=== PATIENT | female | born 1985 | race Caucasian/White ===

== ENCOUNTER 2024-09-08 08:23 | Outpatient (AMB) | payer MEDICAID, SELFPAY ==
--- NOTE | 2024-09-08 08:43 | OBCLNT_ITS ---
Vital Signs 09/08/24 08:57 Height 1.7 m Height Method Stated Weight 83.461 kg Weight Measurement Method Standing Scale BMI 28.8 BP 113/74 Blood Pressure Source Automatic Cuff Blood Pressure Location Left Upper Arm Position Sitting Respiration 18 Pulse 85 Pulse Source Monitor Temp 97.5 F Temp Source Temporal Artery Scan Pulse Oximetry (%) 98 Oxygen Delivery Method Room Air Allergies/Home Meds Allergies & Medications Allergies No Known Allergies Allergy (Verified 09/08/24 08:47) Medication Reconciliation PNV 153-FA 400 mcg-om3 35 mg-dha 25 mg-epa 5 mg-fish oil chew tablet ( Gummies) 1 tab PO QDAY 90 days #90 tabs 09/08/24 [Rx] Intake Visit Data Collection New Patient or Established: Established Patient (seen at [facility] within 3 years) Reason for Visit:: OBI Seen by Clinical Staff ONLY (RN/MA): No Portfolio Strategist Required: No Do You Feel Safe at Home: Yes Authorities Contacted: N/A PCP or OBGYN visit in last 3 months: No Hx Now: Yes Are you currently on any form of Control: No Last menstrual period: 05/27/24 Pain Present Currently: No Pain Scale Used: Jacob-Iyer/Numerical Smoking Status Smoking Status: Never smoker Questionnaires Covid-19 Vaccine Questionnaire Has patient been vacinated for Covid-19 Have you been vacinated for Covid-19: No PHQ-9 PHQ-2 Over the last 2 weeks, how often have you been bothered by any of the following problems? 1. Little interest or pleasure in doing things: not at all 2. Feeling down, depressed, or hopeless: not at all Total score: 0 PHQ-9 3. Trouble falling or staying asleep, or sleeping too much: Several days 4. Feeling tired or having little energy: Several days 5. Poor appetite or overeating: Not at all 6. Feeling bad about yourself - or that you are a failure or have let yourself or your family down: Not at all 7. Trouble concentrating on things, such as reading the newspaper or watching television: Not at all 8. Moving or speaking so slowly that other people could have noticed? - Or the opposite - being so fidgety or restless that you have been moving around a lot more than usual: not at all 9. Thoughts that you would be better off or of hurting yourself in some way: Not at all Total score: 2.0 If you checked off any problems, how difficult have these problems made it for you to do your work, take care of things at home, or get along with other people?: not difficult at all Source: Developed by Drs. Kevin Holliday, Tami Pang, Sathya Lerner and colleagues, with an educational robby from [employer]. Depression screen completed yes Social History Living Situation History Marital Status: Single Lives With: Children Housing: House Tobacco History Smoking Status: Never smoker Alcohol History Alcohol Intake: Never Domestic Abuse History Do You Feel Safe at Home: Yes Past Medical History Past Medical History Have you ever been diagnosed with any of the following: Cardiology Problems Congestive Heart Failure: No Respiratory Problems Chronic Obstructive Pulmonary Disease (COPD): No Stomache/Intestinal Problems Hepatitis: No Colorectal Cancer: No Genital/Urinary Problems Renal Disease: No Reproductive Problems Breast Cancer: No Previous Pregnancies: Yes Musculoskeletal Problems Bone Cancer: No Endocrine Problems Diabetes Mellitus Type 1: No Diabetes Mellitus Type 2: No Other Problems Hospitalization: No Down Syndrome: No Developmental Delay: No Shingles: No Falls: No Blood Transfusions: No Blood Transfusion Reaction: No Anesthesia Reactions: No Organ Transplant: No Chemotherapy: No Radiation Therapy: No Hyperbaric Therapy: No MRSA: No VRSA: No Vancomycin-Resistant Enterococci: No Human Immunodeficiency Virus (HIV): No Chicken Pox: No Measles: No Mumps: No Rubella (Portuguese Measles): No Pertussis: No Clostridium Difficile: No Cancer: No Cervical Cancer: No Lung Cancer: No Ovarian Cancer: No Surgical History Hysterectomy: No History of Present Illness HPI Narrative History of Present Illness Lucia Babcock is a 38-year-old who presents for her initial visit at 14 weeks and 6 days gestation based on her last menstrual period of May 26, 2024. The patient reports experiencing headaches and nausea, which she attributes to the vitamins she has been taking. The patient describes that when she takes the prescribed vitamins, she experiences severe headaches that do not improve with sleep and worsen over time. Additionally, she reports feeling sick to her stomach and being unable to engage in normal activities, often confined to the couch due to these symptoms. However, when she stops taking the vitamins, her symptoms improve significantly. She states, I'm perfectly fine. I'm not even tired. I'm not weak. I don't feel sick. I don't get headaches. The patient mentions that her menstrual cycles were unusual in April and May, lasting only about 2 days instead of her typical 5-day duration. She denies any other current health issues or concerns related to her . Regarding her obstetric history, the patient has had two full-term vaginal deliveries, one second-trimester loss at 15 weeks in July 2021, and two miscarriages. 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 No cramping/ bleeding No nausea/ vomiting OB Ultrasound OB Ultrasound Gestational sac assessment: Presence, location, size, shape: heart rate 142 bpm, normal. Uterus WNL, CRL consistent with 13 weeks 6 days gestation. OB Initial Visit OB Flowsheet OB Flowsheet Initial Weight: Not Recorded Date -?-?-?-?-?-?-?-?-?-?-?-?- EGA Weight Edema CTX Effacement BP Fundal ht Pres Dilation Effacement Station Visit Note Alb Glu FHR Mov 09/08/24 -?-?-?-?-?-?-?-?-?-?-?-?- 13w 1d 83.461 kg 113/74 OBI: Lucia Babcock is a 38-year-old who presents for her initial visit at 14 weeks and 6 days gestation based on her last menstrual period of May 26, 2024. Regarding her obstetric history, the pat ient has had two full-term vaginal deliveries, one second-trimester loss at 15 weeks in July 2021, and two miscarriages. 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 - Order initial labs including genetic testing for aneuploidy screening - Refer for anatomy survey ultrasound at 20 weeks gestation at [facility] - Continue care with regular fo llow-up visits - Discontinue current vitamin p rescription - Recommend trial of [id number]-jjdaemz pr enatal gummy vitamins - Educate patient that temporary discont inuation of vitamins is acceptable 145 Menstrual History Menstrual reliability: definite Flow: normal Menstrual regularity: regular Monthly: Yes Age at menarche: 10 On control pills at conception: No Date of positive home test: 03/10/25 OB History : 5 Para: 2 Hx Total # of Abortions (Spontaneous & Elective): 2 # of Living Children: 2 Delivery History 1st : Child's name: Jodi date: 05/21/16 sex: female Delivery type: vaginal weight (lbs): 6000 g Delivery complications: no History of depression before or after : No 2nd : Child's name: Ernie date: 10/09/19 sex: male Delivery type: vaginal weight (lbs): 8000 g Delivery complications: no History of depression before or after : No Infection History & Risk Evaluation History of STDs: none HIV risk evaluation: low risk Hepatitis B risk evaluation: low risk Patient or partner has history of Genital Herpes: No Varicella/chicken pox status: immunized Genetic Screening & History Genetic Screening/Teratology Counseling - Includes patient, baby's father, or anyone in either family with: 1. Patient's age 35 years or older as of estimated date of delivery: Yes 2. Thalassemia (Belarusian, Syriac, Mediterranean, or Background); MCV less than 80: No 3. Neural Tube Defect (Meningomyelocele, Spina Bifida, or Anencephaly): No 4. Congenital Heart Defect: No 5. Down Syndrome: No 6. Ciro-Sachs (Ashkenazi Methodist, Cajun, Namibian [place]): No 7. Gabo Disease (Ashkenazi Methodist): No 8. Familial Dysautonomia (Ashkenazi Methodist): No 9. Sickle Cell Disease or Trait (): No 10. Hemophilia or other blood disorders: No 11. Muscular Dystrophy: No 12. Cystic Fibrosis: No 13. [place]'s Chorea: No 14. Mental Retardation/Autism: No 15. Other inherited genetic or chromosomal disorder: No 16. Maternal Metabolic Disorder (EG,TYPE 1 Diabetes, PKU): No 17. Patient or baby's father had a child with defects not listed above: No 18. Recurrent loss or a stillbirth: Yes 19. Medications (including supplements, vitamins, herbs or otc drugs)/illicit/recreational drugs/alcohol since last menstrual period: No 20. Any other: No Infection History 1. Live with someone with TB or exposed to TB: No 2. Rash or viral illness since last menstrual period: No 3. Hepatitis B,C: No Other (see comments) Source: [employer] Assessment & Plan Diagnosis / Problem List (1) with history of : Status: Acute (2) Advanced maternal age (AMA) in : Status: Acute Plan Problem-Based Assessment and Plan Lucia Babcock, 38-year-old female at 14 weeks 6 days gestation presenting for initial visit with complaints of headaches and nausea. Intrauterine Assessment: Patient is a 38-year-old at 14 weeks 6 days gestation based on last menstrual period of May 27, 2024, with an estimated due date of March 03, 2025. Ultrasound performed today confirms viable intrauterine with heart rate of 142 bpm, which is within normal range. anatomy visualized appears normal for gestational age. Dating by ultrasound (13 weeks 6 days) is consistent with dating by last menstrual period. Plan: - Order initial labs including genetic testing for aneuploidy screening - Refer for anatomy survey ultrasound at 20 weeks gestation at [facility] - Continue care with regular follow-up visits vitamin intolerance Assessment: Patient reports headaches and nausea associated with current vitamin prescription. Symptoms improve when patient discontinues the vitamin. Plan: - Discontinue current vitamin prescription - Recommend trial of fulc-xiw-bqwviab gummy vitamins - Educate patient that temporary discontinuation of vitamins is acceptable Pt Education Educated the patient on the importance of care, including taking vitamins with folic acid, iron, and calcium. Emphasized avoiding alcohol, smoking, and certain medications. Discussed common symptoms like nausea and fatigue, advising small, frequent meals and adequate hydration. Explained the need for regular check-ups and recommended safe physical activities. Instructed on signs of complications, such as severe cramping or bleeding, and when to seek immediate medical attention. Highlighted the importance of a balanced diet and avoiding high-risk foods. Encouraged open communication about any concerns or questions. Encouraged keeping up with all appointments and tests. Counseled on future schedule of labs and ultrasound, MFM appt if indicated Office Procedures OB Clinic LOC & Office Proc's Nursing/Assessment Patient Status: Established Patient OB Clinic Nursing Assessment: BP Monitoring, Medication Reconciliation, Update PMH in EMR and Vital Signs OB Clinic Coordination of Care: Complex Care and Chronic Disease 1-5, Consent,records obtained, informed consent, Education Simp Pt/Fam, Lab and Imaging orders and Staff clarify orders Established Patient Charge Established Patient Point Assignment: 115 Established Patient Point Charge: EP Level 3 (80-115) Antepartum Initial or Follow-up Antepartum Initial Visit: No Bedside Ultrasounds US Transabdominal <14 weeks at bedside: Yes
[2024-09-08 08:57] VITALS: BP 113/74; PULSE 85; RESP 18; TEMP 36.4; O2SAT 98; BMI 28.8
== END 2024-09-08 09:43 | disposition home or self-care (01) ==
LOC: HODSOBC 08:23
PROVIDERS: PCP Family Medicine; Referring Provider Family Medicine; Supervising Provider Obstetrics & Gynecology; Visit Provider Obstetrics & Gynecology
DX: O09.521 Supervision of elderly multigravida, first trimester (principal); Z3A.13 13 weeks gestation of pregnancy; O09.291 Supervision of pregnancy with other poor reproductive or obstetric history, first trimester; O26.21 Pregnancy care for patient with recurrent pregnancy loss, first trimester; O9A.211 Injury, poisoning and certain other consequences of external causes complicating pregnancy, first trimester; R51.9 Headache, unspecified; R11.0 Nausea; T45.2X5A Adverse effect of vitamins, initial encounter
CPT/HCPCS: 76801; 99213; G0463

== ENCOUNTER 2024-10-06 09:05 | Outpatient (AMB) | payer MEDICAID, SELFPAY ==
--- NOTE | 2024-10-06 09:28 | OBCLNT_ITS ---
Vital Signs 10/06/24 09:29 Height 1.7 m Height Method Stated Weight 82.554 kg Weight Measurement Method Standing Scale BMI 28.5 BP 109/71 Blood Pressure Source Automatic Cuff Blood Pressure Location Left Upper Arm Position Sitting Respiration 18 Pulse 85 Pulse Source Monitor Temp 97.2 F Temp Source Oral Pulse Oximetry (%) 98 Oxygen Delivery Method Room Air Allergies/Home Meds Allergies & Medications Allergies No Known Allergies Allergy (Verified 10/06/24 09:29) Medication Reconciliation vitamin with calcium no.72-iron 27 mg-folic acid 1 mg tablet ( Vitamins Plus Low Iron) 1 tab PO QDAY 90 days #90 tabs 09/23/24 [Rx Confirmed 10/06/24] docusate sodium 100 mg capsule (Stool Softener) 100 mg PO QDAY 30 days #30 caps 10/06/24 [Rx] ferrous sulfate 325 mg (65 mg iron) tablet 325 mg PO BID 90 days #180 tabs 10/06/24 [Rx] Intake Visit Data Collection New Patient or Established: Established Patient (seen at [facility] within 3 years) Reason for Visit:: OBC CHECK NO CONCERNS Seen by Clinical Staff ONLY (RN/MA): No Circus Roustabout Required: No Do You Feel Safe at Home: Yes Authorities Contacted: N/A PCP or OBGYN visit in last 3 months: Yes Date of Last PCP or OBGYN visit: 09/08/24 Hx Now: Yes Are you currently on any form of Control: No Pain Present Currently: No Pain scale:: 0 Smoking Status Smoking Status: Never smoker Questionnaires Covid-19 Vaccine Questionnaire Has patient been vacinated for Covid-19 Have you been vacinated for Covid-19: Yes PHQ-9 PHQ-2 Over the last 2 weeks, how often have you been bothered by any of the following problems? 1. Little interest or pleasure in doing things: not at all 2. Feeling down, depressed, or hopeless: not at all Total score: 0 PHQ-9 3. Trouble falling or staying asleep, or sleeping too much: Not at all 4. Feeling tired or having little energy: Not at all 5. Poor appetite or overeating: Not at all 6. Feeling bad about yourself - or that you are a failure or have let yourself or your family down: Not at all 7. Trouble concentrating on things, such as reading the newspaper or watching television: Not at all 8. Moving or speaking so slowly that other people could have noticed? - Or the opposite - being so fidgety or restless that you have been moving around a lot more than usual: not at all 9. Thoughts that you would be better off or of hurting yourself in some way: Not at all Total score: 0 If you checked off any problems, how difficult have these problems made it for you to do your work, take care of things at home, or get along with other people?: not difficult at all Source: Developed by Drs. Kevin Holliday, Tami Pang, Sathya Lerner and colleagues, with an educational robby from [employer]. 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 - Patient was previously seen on September 08, 2024, and given lab orders for labs and genetic testing. - She reports difficulty digesting vitamins. - Mentions intermittently holding the vitamin due to digestive issues. - No other symptoms or complaints reported. No contractions/ LOF/VB, reports good FM No SALINAS/VC/RUQ/Epig pain Care OB Visit Log OB Flowsheet Initial Weight: Not Recorded Date -?-?-?-?-?-?-?-?-?-?-?-?- EGA Weight BP Alb Glu CTX Pres Fundal ht FHR Mov Dilation Station Effacement Hx Notes Visit Note 09/08/24 -?-?-?-?-?-?-?-?-?-?-?-?- 13w 1d 83.461 kg 113/74 145 OBI: Lucia Babcock is a 38-year-old who presents for her initial visit at 14 weeks and 6 days gestation based on her last menstrual period of May 26, 2024. Regarding her obstetric history, the pat ient has had two full-term vaginal deliveries, one second-trimester loss at 15 weeks in July 2021, and two miscarriages. 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 - Order initial labs including genetic testing for aneuploidy screening - Refer for anatomy survey ultrasound at 20 weeks gestation at [facility] - Continue care with regular fo llow-up visits - Discontinue current vitamin p rescription - Recommend trial of mgbc-vgc-grdjyee pr enatal gummy vitamins - Educate patient that temporary discont inuation of vitamins is acceptable 10/06/24 -?-?-?-?-?-?-?-?-?-?-?-?- 17w 1d 82.554 kg 109/71 Lucia Babcock, at 17w1d, presents for routine care. She reports difficulty tolerating vitamins due to digestive issues and has intermittently held them. No other complaints. Denies CTX/LOF/VB, reports good FM. Labs show mild anemia (Hgb 10.3), 1+ ketonuria, and reactive RPR with 1:1 titer (TPA negative). All other labs, including genetic screen, were normal. Male fetus confirmed. Plan: Switch to chewable or gummy vit pedro with iron Encourage increased hydration and regula r meals to reduce ketonuria Monitor RPR titer; no treatment needed i f TPA remains negative Continue routine care Follow up in 4 weeks ELOINA Calculator Estimated Delivery Date Method Current WG Current Estimate 03/15/25 Ultrasound #1 18w 6d Other Estimates 03/03/25 LMP (Certain) 20w 4d Exam General General Appearance: alert, in no apparent distress and healthy appearing Head Head exam: atraumatic Neck Neck exam: Present normal inspection and trachea midline Chest Chest inspection: Present normal inspection and symmetric chest wall rise External exam: Present normal external exam; Absent tenderness Neuro Neurological exam: Present oriented X3 Psych Psychiatric exam: Present normal affect and normal mood Office Procedures OB Clinic LOC & Office Proc's Nursing/Assessment Patient Status: Established Patient OB Clinic Nursing Assessment: Medication Reconciliation, Update PMH in EMR and Vital Signs OB Clinic Coordination of Care: Consent,records obtained, informed consent, Education Simp Pt/Fam and Staff clarify orders Special Needs: Heart tones Established Patient Charge Established Patient Point Assignment: 90 Established Patient Point Charge: EP Level 3 (80-115) Assessment & Plan Diagnosis / Problem List (1) with history of : Status: Acute (2) Anemia affecting : Status: Acute Plan Problem List - , 17 weeks 1 day - Anemia - Ketonuria - Reactive RPR Assessment - 5 para 2 at 17 weeks and 1 day gestation - RPR reactive with titer 1:1, TPA negative - Mild anemia (Hgb 10.3, Hct 31.2) - Ketonuria (1+ ketones on urinalysis) - Male fetus confirmed by genetic testing - Negative for aneuploidy and common chromosome abnormalities - Negative for SMA, cystic fibrosis, and Fragile X carrier status - Hepatitis B negative, Hepatitis C negative - Rubella immune - Blood type O positive, antibody screen negative - HIV negative, gonorrhea and chlamydia negative Educated the patient on labor signs, including regular contractions, lower back pain, and changes in vaginal discharge. Advised avoiding heavy lifting and getting adequate rest. Instructed to contact the office immediately if any signs occur. Discussed the importance of a balanced diet rich in folic acid, iron, and calcium, and provided a list of recommended and to-avoid foods. Emphasized avoiding high-sugar foods to reduce gestational diabetes risk. Encouraged hydration and frequent, small meals for energy..
[2024-10-06 09:29] VITALS: BP 109/71; PULSE 85; RESP 18; TEMP 36.2; O2SAT 98; BMI 28.5
== END 2024-10-06 09:47 | disposition home or self-care (01) ==
LOC: HODSOBC 09:05
PROVIDERS: PCP Obstetrics & Gynecology; Referring Provider Obstetrics & Gynecology; Supervising Provider Obstetrics & Gynecology; Visit Provider Obstetrics & Gynecology
DX: O09.522 Supervision of elderly multigravida, second trimester (principal); O09.292 Supervision of pregnancy with other poor reproductive or obstetric history, second trimester; Z3A.17 17 weeks gestation of pregnancy; O09.892 Supervision of other high risk pregnancies, second trimester; O99.012 Anemia complicating pregnancy, second trimester
CPT/HCPCS: 99213; G0463

== ENCOUNTER 2024-11-08 09:44 | Outpatient (AMB) | payer MEDICAID, SELFPAY ==
[2024-11-08 10:12] VITALS: BP 108/72; PULSE 69; RESP 17; TEMP 36.4; O2SAT 98; BMI 29.2
--- NOTE | 2024-11-08 10:12 | OBCLNT_ITS ---
Vital Signs 11/08/24 10:12 Height 1.7 m Height Method Stated Weight 84.368 kg Weight Measurement Method Standing Scale BMI 29.2 BP 108/72 Blood Pressure Source Automatic Cuff Blood Pressure Location Right Upper Arm Position Sitting Respiration 17 Pulse 69 Pulse Source Monitor Temp 97.6 F Temp Source Temporal Artery Scan Pulse Oximetry (%) 98 Oxygen Delivery Method Room Air Allergies/Home Meds Allergies & Medications Allergies No Known Allergies Allergy (Verified 11/08/24 10:13) Medication Reconciliation vitamin with calcium no.72-iron 27 mg-folic acid 1 mg tablet ( Vitamins Plus Low Iron) 1 tab PO QDAY 90 days #90 tabs 09/23/24 [Rx Confirmed 11/08/24] ferrous sulfate 325 mg (65 mg iron) tablet 325 mg PO BID 90 days #180 tabs 10/06/24 [Rx Confirmed 11/08/24] Intake Visit Data Collection New Patient or Established: Established Patient (seen at [facility] within 3 years) Reason for Visit:: OBC Seen by Clinical Staff ONLY (RN/MA): No Salad Maker Required: No Do You Feel Safe at Home: Yes Authorities Contacted: N/A PCP or OBGYN visit in last 3 months: Yes Date of Last PCP or OBGYN visit: 10/06/24 Hx Now: Yes Are you currently on any form of Control: No Pain Present Currently: No Pain Scale Used: Jacob-Iyer/Numerical Pain scale:: 0 Smoking Status Smoking Status: Never smoker Questionnaires Covid-19 Vaccine Questionnaire Has patient been vacinated for Covid-19 Have you been vacinated for Covid-19: No PHQ-9 PHQ-2 Over the last 2 weeks, how often have you been bothered by any of the following problems? 1. Little interest or pleasure in doing things: not at all 2. Feeling down, depressed, or hopeless: not at all Total score: 0 PHQ-9 3. Trouble falling or staying asleep, or sleeping too much: Not at all 4. Feeling tired or having little energy: Not at all 5. Poor appetite or overeating: Not at all 6. Feeling bad about yourself - or that you are a failure or have let yourself or your family down: Not at all 7. Trouble concentrating on things, such as reading the newspaper or watching television: Not at all 8. Moving or speaking so slowly that other people could have noticed? - Or the opposite - being so fidgety or restless that you have been moving around a lot more than usual: not at all 9. Thoughts that you would be better off or of hurting yourself in some way: Not at all Total score: 0 If you checked off any problems, how difficult have these problems made it for you to do your work, take care of things at home, or get along with other people?: not difficult at all Source: Developed by Drs. Kevin Holliday, Tami Pang, Sathya Lerner and colleagues, with an educational robby from [employer] 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 Past Medical History: No Hx Neurological Disorders, No Hx Breast Cancer, No Hx Cardiac Disorders, No Hx Cancer, No Hx Blood Disorders, No Hx Gastrointestinal Disorders, No Hx Renal Disease, No Hx Diabetes Mellitus Type 1, No Hx Diabetes Mellitus Type 2 and No Hx Hysterectomy Care OB Visit Log OB Flowsheet Initial Weight: Not Recorded Date -?-?-?-?-?-?-?-?-?-?-?-?- EGA Weight BP Alb Glu CTX Pres Fundal ht FHR Mov Dilation Station Effacement Hx Notes Visit Note 09/08/24 -?-?-?-?-?-?-?-?-?-?-?-?- 13w 1d 83.461 kg 113/74 145 OBI: Lucia Babcock is a 38-year-old who presents for her initial visit at 14 weeks and 6 days gestation based on her last menstrual period of May 26, 2024. Regarding her obstetric history, the pat ient has had two full-term vaginal deliveries, one second-trimester loss at 15 weeks in July 2021, and two miscarriages. 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 - Order initial labs including genetic testing for aneuploidy screening - Refer for anatomy survey ultrasound at 20 weeks gestation at [facility] - Continue care with regular fo llow-up visits - Discontinue current vitamin p rescription - Recommend trial of [id number]-phhcusp pr enatal gummy vitamins - Educate patient that temporary discont inuation of vitamins is acceptable 10/06/24 -?-?-?-?-?-?-?-?-?-?-?-?- 17w 1d 82.554 kg 109/71 Lucia Babcock, at 17w1d, presents for routine care. She reports difficulty tolerating vitamins due to digestive issues and has intermittently held them. No other complaints. Denies CTX/LOF/VB, reports good FM. Labs show mild anemia (Hgb 10.3), 1+ ketonuria, and reactive RPR with 1:1 titer (TPA negative). All other labs, including genetic screen, were normal. Male fetus confirmed. Plan: Switch to chewable or gummy vit pedro with iron Encourage increased hydration and regula r meals to reduce ketonuria Monitor RPR titer; no treatment needed i f TPA remains negative Continue routine care Follow up in 4 weeks 11/08/24 -?-?-?-?-?-?-?-?-?-?-?-?- 21w 6d 84.368 kg 108/72 absent unknown 22 145 active Doing well. taking PNV and iron. fetus active. MFM scan pending. no PTL complaints discuss PTL sign. increase fluid, discuss ptl precaution, 3rd tri labs ordered, MFM pending, continue PNV and iron and iron foods. RTC 3 week ELOINA Calculator Estimated Delivery Date Method Current WG Current Estimate 03/15/25 Ultrasound #1 21w 6d Other Estimates 03/03/25 LMP (Certain) 23w 4d Notes Visit Date: 11/08/24 Last Updated by: Melanie Arroyo, BRAVO 38 yo . poor dates. O+,abs-,rpr;;reactive, 1:1, TPA-, gc/ct-, hbsag- , hiv-,HC- NIPT-/Boy, SMA and CF- EDC 03/15/25, based on 13 week sono Office Procedures OB Clinic LOC & Office Proc's Nursing/Assessment Patient Status: Established Patient OB Clinic Nursing Assessment: Medication Reconciliation, Update PMH in EMR and Vital Signs OB Clinic Coordination of Care: Complex Care and Chronic Disease 1-5, Consent,records obtained, informed consent, Education Simp Pt/Fam and Staff clarify orders Special Needs: Heart tones Established Patient Charge Established Patient Point Assignment: 115 Established Patient Point Charge: EP Level 3 (80-115) Assessment & Plan Diagnosis / Problem List (1) Anemia affecting : Status: Acute (2) Advanced maternal age (AMA) in : Status: Acute Plan 3rd tri labs, ptl precaution reviewed, hydrate, continue PNV/iron,iron food, f/u on mfm appointment,ptl precaution Additional Plan Follow Up: 4 Weeks (obc)
== END 2024-11-08 10:40 | disposition home or self-care (01) ==
LOC: HODSOBC 09:44
PROVIDERS: PCP Advanced Practice Midwife; Referring Provider Advanced Practice Midwife; Supervising Provider Advanced Practice Midwife; Visit Provider Advanced Practice Midwife
DX: O09.522 Supervision of elderly multigravida, second trimester (principal); O09.892 Supervision of other high risk pregnancies, second trimester; O99.012 Anemia complicating pregnancy, second trimester; Z3A.21 21 weeks gestation of pregnancy
CPT/HCPCS: 99213; G0463

== ENCOUNTER 2024-12-01 15:00 | Outpatient (AMB) | payer MEDICAID, SELFPAY ==
--- NOTE | 2024-12-01 15:13 | OBCLNT_ITS ---
Vital Signs 12/01/24 15:14 Height 1.7 m Height Method Stated Weight 85.786 kg Weight Measurement Method Standing Scale BMI 29.7 BP 108/72 Blood Pressure Source Automatic Cuff Blood Pressure Location Right Upper Arm Position Sitting Respiration 17 Pulse 85 Pulse Source Monitor Temp 97.8 F Temp Source Temporal Artery Scan Pulse Oximetry (%) 98 Oxygen Delivery Method Room Air Allergies/Home Meds Allergies & Medications Allergies No Known Allergies Allergy (Verified 12/01/24 15:15) Medication Reconciliation vitamin with calcium no.72-iron 27 mg-folic acid 1 mg tablet ( Vitamins Plus Low Iron) 1 tab PO QDAY 90 days #90 tabs 09/23/24 [Rx Confirmed 12/01/24] ferrous sulfate 325 mg (65 mg iron) tablet 325 mg PO BID 90 days #180 tabs 10/06/24 [Rx Confirmed 12/01/24] Intake Visit Data Collection New Patient or Established: Established Patient (seen at [facility] within 3 years) 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 1. Little interest or pleasure in doing things: not at all 2. Feeling down, depressed, or hopeless: not at all Total score: 0 PHQ-9 3. Trouble falling or staying asleep, or sleeping too much: Not at all 4. Feeling tired or having little energy: Not at all 5. Poor appetite or overeating: Not at all 6. Feeling bad about yourself - or that you are a failure or have let yourself or your family down: Not at all 7. Trouble concentrating on things, such as reading the newspaper or watching television: Not at all 8. Moving or speaking so slowly that other people could have noticed? - Or the opposite - being so fidgety or restless that you have been moving around a lot more than usual: not at all 9. Thoughts that you would be better off or of hurting yourself in some way: Not at all Total score: 0 If you checked off any problems, how difficult have these problems made it for you to do your work, take care of things at home, or get along with other people?: not difficult at all Source: Developed by Drs. Kevin Holliday, Tami Pang, Sathya Lerner and colleagues, with an educational robby from [employer]. 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 Past Medical History: No Hx Neurological Disorders, No Hx Breast Cancer, No Hx Cardiac Disorders, No Hx Cancer, No Hx Blood Disorders, No Hx Gastrointestinal Disorders, No Hx Renal Disease, No Hx Diabetes Mellitus Type 1, No Hx Diabetes Mellitus Type 2 and No Hx Hysterectomy Care OB Visit Log OB Flowsheet Initial Weight: Not Recorded Date -?-?-?-?-?-?-?-?-?-?-?-?- EGA Weight BP Alb Glu CTX Pres Fundal ht FHR Mov Dilation Station Effac ement Hx Notes Visit Note 09/08/24 -?-?-?-?-?-?-?-?-?-?-?-?- 13w 1d 83.461 kg 113/74 145 OBI: Lucia Babcock is a 38-year-old who presents for her initial visit at 14 weeks and 6 days gestation based on her last menstrual period of May 26, 2024. Regarding her obstetric history, the pat ient has had two full-term vaginal deliveries, one second-trimester loss at 15 weeks in July 2021, and two miscarriages. 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 - Order initial labs including genetic testing for aneuploidy screening - Refer for anatomy survey ultrasound at 20 weeks gestation at [facility] - Continue care with regular fo llow-up visits - Discontinue current vitamin p rescription - Recommend trial of dnip-ine-ueygmoq pr enatal gummy vitamins - Educate patient that temporary discont inuation of vitamins is acceptable 10/06/24 -?-?-?-?-?-?-?-?-?-?-?-?- 17w 1d 82.554 kg 109/71 Lucia Babcock, at 17w1d, presents for routine care. She reports difficulty tolerating vitamins due to digestive issues and has intermittently held them. No other complaints. Denies CTX/LOF/VB, reports good FM. Labs show mild anemia (Hgb 10.3), 1+ ketonuria, and reactive RPR with 1:1 titer (TPA negative). All other labs, including genetic screen, were normal. Male fetus confirmed. Plan: Switch to chewable or gummy vit pedro with iron Encourage increased hydration and regula r meals to reduce ketonuria Monitor RPR titer; no treatment needed i f TPA remains negative Continue routine care Follow up in 4 weeks 11/08/24 -?-?-?-?-?-?-?-?-?-?-?-?- 21w 6d 84.368 kg 108/72 absent unknown 22 145 active Doing well. taking PNV and iron. fetus active. MFM scan pending. no PTL complaints discuss PTL sign. increase fluid, discuss ptl precaution, 3rd tri labs ordered, MFM pending, continue PNV and iron and iron foods. RTC 3 week 12/01/24 -?-?-?-?-?-?-?-?-?-?-?-?- 25w 1d 85.786 kg 108/72 absent unknown 25 145 active Doing well. Patient takes iron and vitamins. Third trimester lab was done. Labs were normal and 1 hour GTT was 121. Denies contractions. Denies leaking. Denies bleeding Maternal- medicine appointment is pending. Discussed labor precautions. Increase fluids. Continue iron and vitamins. ELOINA Calculator Estimated Delivery Date Method Current WG Current Estimate 03/15/25 Ultrasound #1 25w 1d Other Estimates 03/03/25 LMP (Certain) 26w 6d Notes Visit Date: 12/01/24 Last Updated by: Melanie Arroyo CNM 11/29 3rd tri lab: A1c: 4.9, 1 hr gtt: 121. RPR:1:1/TPA- Visit Date: 11/08/24 Last Updated by: Melanie Arroyo, CNTawanna 38 yo . poor dates. O+,abs-,rpr;;reactive, 1:1, TPA-, gc/ct-, hbsag- , hiv-,HC- NIPT-/Boy, SMA and CF- EDC 03/15/25, based on 13 week sono Office Procedures OB Clinic LOC & Office Proc's Nursing/Assessment Patient Status: Established Patient OB Clinic Nursing Assessment: Medication Reconciliation, Update PMH in EMR and Vital Signs OB Clinic Coordination of Care: Complex Care and Chronic Disease 1-5, Cons ent,records obtained, informed consent, Education Simp Pt/Fam and Staff clarify orders Special Needs: Heart tones Established Patient Charge Established Patient Point Assignment: 115 Established Patient Point Charge: EP Level 3 (80-115) Assessment & Plan Diagnosis / Problem List (1) Advanced maternal age (AMA) in : Status: Acute (2) High-risk in second trimester: Status: Acute Plan Maternal- medicine appointment is at [facility] is pending. [facility] will call patient this week. Discussed labor precautions. Increase fluids. Discussed labs with patient. Return in 4 weeks OB check Additional Plan Follow Up: 4 Weeks (obc)
[2024-12-01 15:14] VITALS: BP 108/72; PULSE 85; RESP 17; TEMP 36.6; O2SAT 98; BMI 29.7
== END 2024-12-01 15:53 | disposition home or self-care (01) ==
LOC: HODSOBC 15:00
PROVIDERS: PCP Advanced Practice Midwife; Referring Provider Advanced Practice Midwife; Supervising Provider Advanced Practice Midwife; Visit Provider Advanced Practice Midwife
DX: O09.522 Supervision of elderly multigravida, second trimester (principal); Z3A.25 25 weeks gestation of pregnancy
CPT/HCPCS: 99213; G0463

== ENCOUNTER 2024-12-29 08:21 | Outpatient (AMB) | payer MEDICAID, SELFPAY ==
[2024-12-29 08:44] VITALS: PULSE 72; RESP 16; TEMP 36.4; O2SAT 98; BMI 29.5
--- NOTE | 2024-12-29 08:44 | AMB.OBVISIT ---
Vital Signs 12/29/24 08:44 Height 1.7 m Height Method Stated Weight 85.389 kg Weight Measurement Method Standing Scale BMI 29.5 Blood Pressure Source Automatic Cuff Blood Pressure Location Left Upper Arm Position Sitting Respiration 16 Pulse 72 Pulse Source Monitor Temp 97.5 F Temp Source Oral Pulse Oximetry (%) 98 Oxygen Delivery Method Room Air Allergies/Home Meds Allergies & Medications Allergies No Known Allergies Allergy (Verified 12/29/24 08:46) Medication Reconciliation vitamins with calcium no.72-iron 27 mg-folic acid 1 mg tablet ( Vitamins Plus Low Iron) 1 tab PO QDAY 90 days #90 tabs 09/23/24 [Rx Confirmed 12/29/24] ferrous sulfate 325 mg (65 mg iron) tablet 325 mg PO BID 90 days #180 tabs 10/06/24 [Rx Confirmed 12/29/24] Intake Visit Data Collection New Patient or Established: Established Patient (seen at [facility] within 3 years) Reason for Visit:: CARE Seen by Clinical Staff ONLY (RN/MA): No Lead 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 1. Little interest or pleasure in doing things: not at all 2. Feeling down, depressed, or hopeless: not at all Total score: 0 PHQ-9 3. Trouble falling or staying asleep, or sleeping too much: Not at all 4. Feeling tired or having little energy: Not at all 5. Poor appetite or overeating: Not at all 6. Feeling bad about yourself - or that you are a failure or have let yourself or your family down: Not at all 7. Trouble concentrating on things, such as reading the newspaper or watching television: Not at all 8. Moving or speaking so slowly that other people could have noticed? - Or the opposite - being so fidgety or restless that you have been moving around a lot more than usual: not at all 9. Thoughts that you would be better off or of hurting yourself in some way: Not at all Total score: 0 Source: Developed by Drs. Kevin Holliday, Tami Pang, Sathya Lerner and colleagues, with an educational robby from [employer]. 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 Past Medical History: No Hx Neurological Disorders, No Hx Breast Cancer, No Hx Cardiac Disorders, No Hx Cancer, No Hx Blood Disorders, No Hx Gastrointestinal Disorders, No Hx Renal Disease, No Hx Diabetes Mellitus Type 1, No Hx Diabetes Mellitus Type 2 and No Hx Hysterectomy Care OB Visit Log OB Flowsheet Initial Weight: Not Recorded Date <del>?</del> EGA Weight BP Alb Glu CTX Pres Fundal ht FHR Mov Dilation Station Effacement Hx Notes Visit Note 09/08/24 <del>?</del> 13w 1d 83.461 kg 113/74 145 OBI: Lucia Babcock is a 38-year-old who presents for her initial visit at 14 weeks and 6 days gestation based on her last menstrual period of May 26, 2024. Regarding her obstetric history, the patient has had two full-term vaginal deliveries, one second-trimester loss at 15 weeks in July 2021, and two miscarriages. 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 - Order initial labs including genetic testing for aneuploidy screening - Refer for anatomy survey ultrasound at 20 weeks gestation at [facility] - Continue care with regular follow-up visits - Discontinue current vitamin prescription - Recommend trial of [id number]-[id number] gummy vitamins - Educate patient that temporary discontinuation of vitamins is acceptable 10/06/24 <del>?</del> 17w 1d 82.554 kg 109/71 Lucia Babcock, at 17w1d, presents for routine care. She reports difficulty tolerating vitamins due to digestive issues and has intermittently held them. No other complaints. Denies CTX/LOF/VB, reports good FM. Labs show mild anemia (Hgb 10.3), 1+ ketonuria, and reactive RPR with 1:1 titer (TPA negative). All other labs, including genetic screen, were normal. Male fetus confirmed. Plan: Switch to chewable or gummy vitamin with iron Encourage increased hydration and regular meals to reduce ketonuria Monitor RPR titer; no treatment needed if TPA remains negative Continue routine care Follow up in 4 weeks 11/08/24 <del>?</del> 21w 6d 84.368 kg 108/72 absent unknown 22 145 active Doing well. taking PNV and iron. fetus active. MFM scan pending. no PTL complaints discuss PTL sign. increase fluid, discuss ptl precaution, 3rd tri labs ordered, MFM pending, continue PNV and iron and iron foods. RTC 3 week 12/01/24 <del>?</del> 25w 1d 85.786 kg 108/72 absent unknown 25 145 active Doing well. Patient takes iron and vitamins. Third trimester lab was done. Labs were normal and 1 hour GTT was 121. Denies contractions. Denies leaking. Denies bleeding Maternal- medicine appointment is pending. Discussed labor precautions. Increase fluids. Continue iron and vitamins. 12/29/24 <del>?</del> 29w 1d 85.389 kg absent cephalic 28 125 active Doing well. Taking iron twice a day. Tries to eat lots of iron rich foods. Reports good movement. Denies labor complaints like bleeding, leaking, contractions. Declined Tdap today Offered Tdap. Patient declined. Discussed labor precautions. Continue to take iron twice a day. Increase fluids. Increase activity. Return in 3 weeks for OB check ELOINA Calculator Estimated Delivery Date Method Current WG Current Estimate 03/15/25 Ultrasound #1 29w 1d Other Estimates 03/03/25 LMP (Certain) 30w 6d Notes Visit Date: 12/29/24 Last Updated by: Melanie Arroyo CNM 39 yo . LMP 05/27/24. EDC 03/03/25. 1st sono: 09/08/24: 13w1. EDC: 03/15/25. O+,abs-,hbsag-,hiv-,HC-, GC/CT-, RPR:1:1, Reactive, TPA-, rub imm, Visit Date: 12/01/24 Last Updated by: Melanie Arroyo CNM 11/29 tri lab: A1c: 4.9, 1 hr gtt: 121. RPR:1:1/TPA- Visit Date: 11/08/24 Last Updated by: Melanie Arroyo CNM 38 yo . poor dates. O+,abs-,rpr;;reactive, 1:1, TPA-, gc/ct-, hbsag-, hiv-,HC- NIPT-/Boy, SMA and CF- EDC 03/15/25, based on 13 week sono Office Procedures OB Clinic LOC & Office Proc's Nursing/Assessment Patient Status: Established Patient OB Clinic Nursing Assessment: Medication Reconciliation, Update PMH in EMR and Vital Signs OB Clinic Coordination of Care: AMA, Complex Care and Chronic Disease 1-5, Consent,records obtained, informed consent, Education Simp Pt/Fam, 4+ Authorizations needed, Lab and Imaging orders, Results/Orders obtained and Staff clarify orders Special Needs: Heart tones Established Patient Charge Established Patient Point Assignment: 180 Established Patient Point Charge: EP Level 5 (160-above) Assessment & Plan Diagnosis / Problem List (1) Advanced maternal age (AMA) in : Status: Acute Plan I redid the referral to Dr. Oakes. Discussed labor precautions. Increase fluids. Discussed danger signs symptoms. Continue iron twice a day, and iron foods. Continue prenatals. Patient declined Tdap. Return in 3 weeks OB Additional Plan Follow Up: 3 Weeks (obc)
== END 2024-12-29 09:03 | disposition home or self-care (01) ==
LOC: HODSOBC 08:21
PROVIDERS: Supervising Provider Advanced Practice Midwife; Visit Provider Advanced Practice Midwife
DX: O09.523 Supervision of elderly multigravida, third trimester (principal); Z3A.29 29 weeks gestation of pregnancy; Z28.21 Immunization not carried out because of patient refusal
CPT/HCPCS: 99215; G0463

== ENCOUNTER 2025-01-26 08:54 | Outpatient (AMB) | payer MEDICAID, SELFPAY ==
[2025-01-26 09:04] VITALS: BP 121/80; PULSE 80; RESP 15; TEMP 36.6; O2SAT 99; BMI 30.2
--- NOTE | 2025-01-26 09:04 | OBCLNT_ITS ---
Vital Signs 01/26/25 09:04 Height 1.7 m Height Method Stated Weight 87.317 kg Weight Measurement Method Standing Scale BMI 30.2 BP 121/80 Blood Pressure Source Automatic Cuff Blood Pressure Location Left Upper Arm Position Sitting Respiration 15 Pulse 80 Pulse Source Monitor Temp 97.9 F Temp Source Oral Pulse Oximetry (%) 99 Oxygen Delivery Method Room Air Allergies/Home Meds Allergies & Medications Allergies No Known Allergies Allergy (Verified 01/26/25 09:14) Medication Reconciliation vitamins with calcium no.72-iron 27 mg-folic acid 1 mg tablet ( Vitamins Plus Low Iron) 1 tab PO QDAY 90 days #90 tabs 09/23/24 [Rx Confirmed 01/26/25] ferrous sulfate 325 mg (65 mg iron) tablet 325 mg PO BID 90 days #180 tabs 10/06/24 [Rx Confirmed 01/26/25] Intake Visit Data Collection New Patient or Established: Established Patient (seen at [facility] within 3 years) Reason for Visit:: CARE Seen by Clinical Staff ONLY (RN/MA): No 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 1. Little interest or pleasure in doing things: not at all 2. Feeling down, depressed, or hopeless: not at all Total score: 0 PHQ-9 3. Trouble falling or staying asleep, or sleeping too much: Not at all 4. Feeling tired or having little energy: Not at all 5. Poor appetite or overeating: Not at all 6. Feeling bad about yourself - or that you are a failure or have let yourself or your family down: Not at all 7. Trouble concentrating on things, such as reading the newspaper or watching television: Not at all 8. Moving or speaking so slowly that other people could have noticed? - Or the opposite - being so fidgety or restless that you have been moving around a lot more than usual: not at all 9. Thoughts that you would be better off or of hurting yourself in some way: Not at all Source: Developed by Drs. Kevin Holliday, Tami aPng, Sathya Lerner and colleagues, with an educational robby from [employer]. 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 Past Medical History: No Hx Neurological Disorders, No Hx Breast Cancer, No Hx Cardiac Disorders, No Hx Cancer, No Hx Blood Disorders, No Hx Gastrointestinal Disorders, No Hx Renal Disease, No Hx Diabetes Mellitus Type 1, No Hx Diabetes Mellitus Type 2 and No Hx Hysterectomy Care OB Visit Log OB Flowsheet Initial Weight: Not Recorded Date -?-?-?-?-?-?-?-?-?-?-?-?- EGA Weight BP Alb Glu CTX Pres Fundal ht FHR Mov Dilation Station Effacement Hx Notes Visit Note 09/08/24 -?-?-?-?-?-?-?-?-?-?-?-?- 16w 1d 83.461 kg 113/74 145 OBI: Lucia Babcock is a 38-year-old who presents for her initial visit at 14 weeks and 6 days gestation based on her last menstrual period of May 26, 2024. Regarding her obstetric history, the pat ient has had two full-term vaginal deliveries, one second-trimester loss at 15 weeks in July 2021, and two miscarriages. 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 - Order initial labs including genetic testing for aneuploidy screening - Refer for anatomy survey ultrasound at 20 weeks gestation at [facility] - Continue care with regular fo llow-up visits - Discontinue current vitamin p rescription - Recommend trial of [id number] pr enatal gummy vitamins - Educate patient that temporary discont inuation of vitamins is acceptable 10/06/24 -?-?-?-?-?-?-?-?-?-?-?-?- 20w 1d 82.554 kg 109/71 Lucia Babcock, at 17w1d, presents for routine care. She reports difficulty tolerating vitamins due to digestive issues and has intermittently held them. No other complaints. Denies CTX/LOF/VB, reports good FM. Labs show mild anemia (Hgb 10.3), 1+ ketonuria, and reactive RPR with 1:1 titer (TPA negative). All other labs, including genetic screen, were normal. Male fetus confirmed. Plan: Switch to chewable or gummy vit pedro with iron Encourage increased hydration and regula r meals to reduce ketonuria Monitor RPR titer; no treatment needed i f TPA remains negative Continue routine care Follow up in 4 weeks 11/08/24 -?-?-?-?-?-?-?-?-?-?-?-?- 24w 6d 84.368 kg 108/72 absent unknown 22 145 active Doing well. taking PNV and iron. fetus active. MFM scan pending. no PTL complaints discuss PTL sign. increase fluid, discuss ptl precaution, 3rd tri labs ordered, MFM pending, continue PNV and iron and iron foods. RTC 3 week 12/01/24 -?-?-?-?-?-?-?-?-?-?-?-?- 28w 1d 85.786 kg 108/72 absent unknown 25 145 active Doing well. Patient takes iron and vitamins. Third trimester lab was done. Labs were normal and 1 hour GTT was 121. Denies contractions. Denies leaking. Denies bleeding Maternal- medicine appointment is pending. Discussed labor precautions. Increase fluids. Continue iron and vitamins. 12/29/24 -?-?-?-?-?-?-?-?-?-?-?-?- 32w 1d 85.389 kg absent cephalic 28 125 ac tive Doing well. Taking iron twice a day. Tries to eat lots of iron rich foods. Reports good movement. Denies labor complaints like bleeding, leaking, contractions. Declined Tdap today Offered Tda p. Patient declined. Discussed labor precautions. Continue to take iron twice a day. Increase fluids. Increase activity. Return in 3 weeks for OB check 01/26/25 -?-?-?-?-?-?-?-?-?-?-?-?- 36w 1d 87.317 kg 121/80 occasional cephalic 36 135 active Denies leaking, denies bleeding, occasional contractions. Reports good movement. No OB complaints Discussed states with patient. GBS today. Discussed labor precautions and kick count. Increase fluids. Continue prenatals. Return in a week OB check ELOINA Calculator Estimated Delivery Date Method Current WG Current Estimate 02/22/25 Ultrasound #2 36w 1d Other Estimates 03/03/25 LMP (Uncertain) 34w 6d 03/16/25 Ultrasound #1 33w 0d 02/22/25 Manual 36w 1d efw: 53%,per MF M. FINAL ELOINA: 02/22/25 Notes Visit Date: 01/26/25 Last Updated by: Melanie Arroyo CNM [facility] sono 01/18/23: IUP35 week. ELOINA based on this sono: +3wk, change ELOINA to 02/22/25 Visit Date: 12/29/24 Last Updated by: Melanie Arroyo CNM 39 yo . LMP 05/27/24. EDC 03/03/25. 1st sono: 09/08/24: 13w1. EDC: 03/15/25. O+,abs-,hbsag-,hiv-,HC-, GC/CT-, RPR:1:1, Reactive, TPA-, rub imm, Visit Date: 12/01/24 Last Updated by: Melanie Arroyo CNM 11/29 tri lab: A1c: 4.9, 1 hr gtt: 121. RPR:1:1/TPA- Visit Date: 11/08/24 Last Updated by: Melanie Arroyo CNM 38 yo . poor dates. O+,abs-,rpr;;reactive, 1:1, TPA-, gc/ct-, hbsag- , hiv-,HC- NIPT-/Boy, SMA and CF- EDC 03/15/25, based on 13 week sono Office Procedures OB Clinic LOC & Office Proc's Nursing/Assessment Patient Status: Established Patient OB Clinic Nursing Assessment: Medication Reconciliation, Update PMH in EMR and Vital Signs OB Clinic Coordination of Care: Complex Care and Chronic Disease 1-5, Consent,records obtained, informed consent, Education Simp Pt/Fam, 1 Ins Authorization, Lab and Imaging orders, Results/Orders obtained and Staff clarify orders Special Needs: Heart tones Established Patient Charge Established Patient Point Assignment: 150 Established Patient Point Charge: EP Level 4 (120-155) Assessment & Plan Diagnosis / Problem List (1) Encounter for supervision of high risk in third trimester, antepartum: Status: Acute (2) Advanced maternal age (AMA) in : Status: Acute Plan GBS today. Discussed labor precautions and kick count. Increase fluids. Discussed dates. Return in a week OB check Additional Plan Follow Up: 1 Week (obc)
== END 2025-01-26 09:28 | disposition home or self-care (01) ==
PROVIDERS: Supervising Provider Advanced Practice Midwife; Visit Provider Advanced Practice Midwife
DX: O09.523 Supervision of elderly multigravida, third trimester (principal); Z3A.36 36 weeks gestation of pregnancy; Z36.85 Encounter for antenatal screening for Streptococcus B
CPT/HCPCS: 99214; G0463

== ENCOUNTER 2025-02-07 09:10 | Outpatient (AMB) | payer MEDICAID, SELFPAY ==
[2025-02-07 09:15] VITALS: BP 121/78; PULSE 98; RESP 16; TEMP 36.6; O2SAT 98; BMI 30.2
--- NOTE | 2025-02-07 09:15 | OBCLNT_ITS ---
Vital Signs 02/07/25 09:15 Height 1.7 m Height Method Stated Weight 87.317 kg Weight Measurement Method Standing Scale BMI 30.2 BP 121/78 Blood Pressure Source Automatic Cuff Blood Pressure Location Left Upper Arm Position Sitting Respiration 16 Pulse 98 Pulse Source Monitor Temp 97.8 F Temp Source Oral Pulse Oximetry (%) 98 Oxygen Delivery Method Room Air Allergies/Home Meds Allergies & Medications Allergies No Known Allergies Allergy (Verified 02/07/25 09:16) Medication Reconciliation vitamins with calcium no.72-iron 27 mg-folic acid 1 mg tablet ( Vitamins Plus Low Iron) 1 tab PO QDAY 90 days #90 tabs 09/23/24 [Rx Confirmed 02/07/25] ferrous sulfate 325 mg (65 mg iron) tablet 325 mg PO BID 90 days #180 tabs 10/06/24 [Rx Confirmed 02/07/25] Intake Visit Data Collection New Patient or Established: Established Patient (seen at [facility] within 3 years) Reason for Visit:: OBC Seen by Clinical Staff ONLY (RN/MA): No Client Experience Specialist Required: No Do You Feel Safe at Home: Yes Authorities Contacted: N/A PCP or OBGYN visit in last 3 months: Yes Date of Last PCP or OBGYN visit: 01/26/25 Hx Now: Yes Are you currently on any form of Control: No Pain Present Currently: No Pain Scale Used: Jacob-Iyer/Numerical Pain scale:: 0 Smoking Status Smoking Status: Never smoker Questionnaires Covid-19 Vaccine Questionnaire Has patient been vacinated for Covid-19 Have you been vacinated for Covid-19: No PHQ-9 PHQ-2 Over the last 2 weeks, how often have you been bothered by any of the following problems? 1. Little interest or pleasure in doing things: not at all 2. Feeling down, depressed, or hopeless: not at all Total score: 0 PHQ-9 3. Trouble falling or staying asleep, or sleeping too much: Not at all 4. Feeling tired or having little energy: Not at all 5. Poor appetite or overeating: Not at all 6. Feeling bad about yourself - or that you are a failure or have let yourself or your family down: Not at all 7. Trouble concentrating on things, such as reading the newspaper or watching television: Not at all 8. Moving or speaking so slowly that other people could have noticed? - Or the opposite - being so fidgety or restless that you have been moving around a lot more than usual: not at all 9. Thoughts that you would be better off or of hurting yourself in some way: Not at all Total score: 0 If you checked off any problems, how difficult have these problems made it for you to do your work, take care of things at home, or get along with other people?: not difficult at all Source: Developed by Drs. Kevin Holliday, Tami Pang, Sathya Lerner and colleagues, with an educational robby from [employer]. 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 Past Medical History: No Hx Neurological Disorders, No Hx Breast Cancer, No Hx Cardiac Disorders, No Hx Cancer, No Hx Blood Disorders, No Hx Gastrointestinal Disorders, No Hx Renal Disease, No Hx Diabetes Mellitus Type 1, No Hx Diabetes Mellitus Type 2 and No Hx Hysterectomy Care OB Visit Log OB Flowsheet Initial Weight: Not Recorded Date -?-?-?-?-?-?-?-?-?-?-?-?- EGA Weight BP Alb Glu CTX Pres Fundal ht FHR Mov Dilation Station Effacement Hx Notes Visit Note 09/08/24 -?-?-?-?-?-?-?-?-?-?-?-?- 16w 1d 83.461 kg 113/74 145 OBI: Lucia Babcock is a 38-year-old who presents for her initial visit at 14 weeks and 6 days gestation based on her last menstrual period of May 26, 2024. Regarding her obstetric history, the pat ient has had two full-term vaginal deliveries, one second-trimester loss at 15 weeks in July 2021, and two miscarriages. 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 - Order initial labs including genetic testing for aneuploidy screening - Refer for anatomy survey ultrasound at 20 weeks gestation at [facility] - Continue care with regular fo llow-up visits - Discontinue current vitamin p rescription - Recommend trial of ombb-grz-[id number] pr enatal gummy vitamins - Educate patient that temporary discont inuation of vitamins is acceptable 10/06/24 -?-?-?-?-?-?-?-?-?-?-?-?- 20w 1d 82.554 kg 109/71 Lucia Babcock, at 17w1d, presents for routine care. She reports difficulty tolerating vitamins due to digestive issues and has intermittently held them. No other complaints. Denies CTX/LOF/VB, reports good FM. Labs show mild anemia (Hgb 10.3), 1+ ketonuria, and reactive RPR with 1:1 titer (TPA negative). All other labs, including genetic screen, were normal. Male fetus confirmed. Plan: Switch to chewable or gummy vit pedro with iron Encourage increased hydration and regula r meals to reduce ketonuria Monitor RPR titer; no treatment needed i f TPA remains negative Continue routine care Follow up in 4 weeks 11/08/24 -?-?-?-?-?-?-?-?-?-?-?-?- 24w 6d 84.368 kg 108/72 absent unknown 22 145 active Doing well. taking PNV and iron. fetus active. MFM scan pending. no PTL complaints discuss PTL sign. increase fluid, discuss ptl precaution, 3rd tri labs ordered, MFM pending, continue PNV and iron and iron foods. RTC 3 week 12/01/24 -?-?-?-?-?-?-?-?-?-?-?-?- 28w 1d 85.786 kg 108/72 absent unknown 25 145 active Doing well. Patient takes iron and vitamins. Third trimester lab was done. Labs were normal and 1 hour GTT was 121. Denies contractions. Denies leaking. Denies bleeding Maternal- medicine appointment is pending. Discussed labor precautions. Increase fluids. Continue iron and vitamins. 12/29/24 -?-?-?-?-?-?-?-?-?-?-?-?- 32w 1d 85.389 kg absent cephalic 28 125 ac tive Doing well. Taking iron twice a day. Tries to eat lots of iron rich foods. Reports good movement. Denies labor complaints like bleeding, leaking, contractions. Declined Tdap today Offered Tda p. Patient declined. Discussed labor precautions. Continue to take iron twice a day. Increase fluids. Increase activity. Return in 3 weeks for OB check 01/26/25 -?-?-?-?-?-?-?-?-?-?-?-?- 36w 1d 87.317 kg 121/80 occasional cephalic 36 135 active Denies leaking, denies bleeding, occasional contractions. Reports good movement. No OB complaints Discussed states with patient. GBS today. Discussed labor precautions and kick count. Increase fluids. Continue prenatals. Return in a week OB check 02/07/25 -?-?-?-?-?-?-?-?-?-?-?-?- 37w 6d 87.317 kg 121/78 occasional cephalic 37 135 active Reports good movement. Denies leaking, denies bleeding, occasional contraction and pressure. Denies other OB complaints Discussed GBS results is negative with patient. Discussed labor precautions and kick count twice a day. Increase fluids. Continue prenatals. Return in a week OB check ELOINA Calculator Estimated Delivery Date Method Current WG Current Estimate 02/22/25 Ultrasound #2 37w 6d Other Estimates 03/03/25 LMP (Uncertain) 36w 4d 03/16/25 Ultrasound #1 34w 5d 02/22/25 Manual 37w 6d efw: 53%,per MF M. FINAL ELOINA: 02/22/25 Notes Visit Date: 02/07/25 Last Updated by: eMlanie Arroyo CNM 02/07: GBS- final ELOINA: Visit Date: 01/26/25 Last Updated by: Melanie Arroyo CNM [facility] sono 01/18/23: IUP35 week. ELOINA based on this sono: +3wk, change ELOINA to 02/22/25 Visit Date: 12/29/24 Last Updated by: Melanie Arroyo CNM 39 yo . LMP 05/27/24. EDC 03/03/25. 1st sono: 09/08/24: 13w1. EDC: 03/15/25. O+,abs-,hbsag-,hiv-,HC-, GC/CT-, RPR:1:1, Reactive, TPA-, rub imm, Visit Date: 12/01/24 Last Updated by: Melanie Arroyo CNM 11/29 tri lab: A1c: 4.9, 1 hr gtt: 121. RPR:1:1/TPA- Visit Date: 11/08/24 Last Updated by: Melanie Arroyo CNM 38 yo . poor dates. O+,abs-,rpr;;reactive, 1:1, TPA-, gc/ct-, hbsag- , hiv-,HC- NIPT-/Boy, SMA and CF- EDC 03/15/25, based on 13 week sono Office Procedures OB Clinic LOC & Office Proc's Nursing/Assessment Patient Status: Established Patient OB Clinic Nursing Assessment: Medication Reconciliation, Update PMH in EMR and Vital Signs OB Clinic Coordination of Care: Education Complex Pt/Fam, Consent,records obtained, informed consent, Lab and Imaging orders, Results/Orders obtained and Staff clarify orders Special Needs: Hearing special needs Established Patient Charge Established Patient Point Assignment: 85 Established Patient Point Charge: EP Level 3 (80-115) Assessment & Plan Diagnosis / Problem List (1) Encounter for supervision of high risk in third trimester, antepartum: Status: Acute (2) Advanced maternal age (AMA) in : Status: Acute Plan Discussed labor precautions with patient. Discussed kick count twice a day. Discussed danger signs symptoms and ER precautions. Increase fluids. Continue prenatals. Return in a week OB check
== END 2025-02-07 10:22 | disposition home or self-care (01) ==
LOC: HODSOBC 09:10
PROVIDERS: Supervising Provider Advanced Practice Midwife; Visit Provider Advanced Practice Midwife
DX: O09.523 Supervision of elderly multigravida, third trimester (principal); Z3A.37 37 weeks gestation of pregnancy
CPT/HCPCS: 99213; G0463

== ENCOUNTER 2025-02-16 08:12 | Outpatient (AMB) | payer MEDICAID, SELFPAY ==
[2025-02-16 08:17] VITALS: BP 131/72; PULSE 82; RESP 17; TEMP 36.3; O2SAT 17; BMI 25.9
--- NOTE | 2025-02-16 08:17 | OBCLNT_ITS ---
Vital Signs 02/16/25 08:17 Height 1.7 m Height Method Stated Weight 75.07 kg Weight Measurement Method Standing Scale BMI 25.9 BP 131/72 H Blood Pressure Source Automatic Cuff Blood Pressure Location Right Upper Arm Position Sitting Respiration 17 Pulse 82 Pulse Source Monitor Temp 97.4 F Temp Source Temporal Artery Scan Pulse Oximetry (%) 17 L Oxygen Delivery Method Room Air Allergies/Home Meds Allergies & Medications Allergies No Known Allergies Allergy (Verified 02/07/25 09:16) Intake Visit Data Collection New Patient or Established: Established Patient (seen at [facility] within 3 years) Reason for Visit:: OBC FOLLOW UP Do You Feel Safe at Home: Yes Authorities Contacted: N/A PCP or OBGYN visit in last 3 months: Yes Smoking Status Smoking Status: Never smoker Questionnaires PHQ-9 PHQ-2 Over the last 2 weeks, how often have you been bothered by any of the following problems? 1. Little interest or pleasure in doing things: not at all PHQ-9 8. Moving or speaking so slowly that other people could have noticed? - Or the opposite - being so fidgety or restless that you have been moving around a lot more than usual: not at all Source: Developed by Drs. Kevin Holliday, Tami Pang, Sathya Lerner and colleagues, with an educational robby from [employer]. 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 Past Medical History: No Hx Neurological Disorders, No Hx Breast Cancer, No Hx Cardiac Disorders, No Hx Cancer, No Hx Blood Disorders, No Hx Gastrointestinal Disorders, No Hx Renal Disease, No Hx Diabetes Mellitus Type 1, No Hx Diabetes Mellitus Type 2 and No Hx Hysterectomy Care OB Visit Log OB Flowsheet Initial Weight: Not Recorded Date -?-?-?-?-?-?-?-?-?-?-?-?- EGA Weight BP Alb Glu CTX Pres Fundal ht FHR Mov Dilation Station Effacement Hx Notes Visit Note 09/08/24 -?-?-?-?-?-?-?-?-?-?-?-?- 14w 6d 83.461 kg 113/74 145 OBI: Lucia Babcock is a 38-year-old who presents for her initial visit at 14 weeks and 6 days gestation based on her last menstrual period of May 26, 2024. Regarding her obstetric history, the pat ient has had two full-term vaginal deliveries, one second-trimester loss at 15 weeks in July 2021, and two miscarriages. 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 - Order initial labs including genetic testing for aneuploidy screening - Refer for anatomy survey ultrasound at 20 weeks gestation at [facility] - Continue care with regular fo llow-up visits - Discontinue current vitamin p rescription - Recommend trial of [id number] pr enatal gummy vitamins - Educate patient that temporary discont inuation of vitamins is acceptable 10/06/24 -?-?-?-?-?-?-?-?-?-?-?-?- 18w 6d 82.554 kg 109/71 Lucia Babcock, at 17w1d, presents for routine care. She reports difficulty tolerating vitamins due to digestive issues and has intermittently held them. No other complaints. Den ies CTX/LOF/VB, reports good FM. Labs show mild anemia (Hgb 10.3), 1+ ketonuria, and reactive RPR with 1:1 titer (TPA negative). All other labs, including genetic screen, were normal. Male fetus confirmed. Plan: Switch to chewable or gummy vit pedro with iron Encourage increased hydration and regula r meals to reduce ketonuria Monitor RPR titer; no treatment needed i f TPA remains negative Continue routine care Follow up in 4 weeks 11/08/24 -?-?-?-?-?-?-?-?-?-?-?-?- 23w 4d 84.368 kg 108/72 absent unknown 22 145 active Doing well. taking PNV and iron. fetus active. MFM scan pending. no PTL complaints discuss PTL sign. increase fluid, discuss ptl precaution, 3rd tri labs ordered, MFM pending, cont inue PNV and iron and iron foods. RTC 3 week 12/01/24 -?-?-?-?-?-?-?-?-?-?-?-?- 26w 6d 85.786 kg 108/72 absent unknown 25 145 active Doing well. Patient takes iron and vitamins. Third trimester lab was done. Labs were normal and 1 hour GTT was 121. Denies contractions. Denies leaking. Denies bleeding Maternal- medicine appointment is pending. Discussed labor precautions. Increase fluids. Continue iron and vitamins. 12/29/24 -?-?-?-?-?-?-?-?-?-?-?-?- 30w 6d 85.389 kg absent cephalic 28 125 ac tive Doing well. Taking iron twice a day. Tries to eat lots of iron rich foods. Reports good movement. Denies labor complaints like bleeding, leaking, contractions. Declined Tdap today Offered Tda p. Patient declined. Discussed labor precautions. Continue to take iron twice a day. Increase fluids. Increase activity. Return in 3 weeks for OB check 01/26/25 -?-?-?-?-?-?-?-?-?-?-?-?- 34w 6d 87.317 kg 121/80 occasional cephalic 36 135 active Denies leaking, denies bleeding, occasional contractions. Reports good movement. No OB complaints Discussed states with patient. GBS today. Discussed labor precautions and kick count. Increase fluids. Continue prenatals. Return in a week OB check 02/07/25 -?-?-?-?-?-?-?-?-?-?-?-?- 36w 4d 87.317 kg 121/78 occasional cephalic 37 135 active Reports good fe patricio movement. Denies leaking, denies bleeding, occasional contraction and pressure. Denies other OB complaints Discussed GBS results is negative with patient. Discussed labor precautions and kick count twice a day. Increase fluids. Continue prenatals. Return in a week OB check 02/16/25 -?-?-?-?-?-?-?-?-?-?-?-?- 37w 6d 75.07 kg 131/72 occasional cephalic 37 135 active Good movement. Occasional contraction and pressure. Denies leaking or bleeding. No OB complaints consent for BTL. Discussed dates with medical OB team. Final ELOINA March 03, 2025. Discussed labor precautions and kick count twice a day. Discussed danger signs symptoms and ER precautions. consent for BTL. Discussed dates with medical OB team. Final ELOINA March 03, 2025. Discussed labor precautions and kick count twice a day. Discussed danger signs symptoms and ER precautions. IOL 03/03/25 ELOINA Calculator Estimated Delivery Date Method Current WG Current Estimate 03/03/25 LMP (Uncertain) 37w 6d Other Estimates 03/10/25 Ultrasound #1 36w 6d 02/22/25 Ultrasound #2 39w 1d 03/03/25 Manual 37w 6d efw: 53%,per MF M. FINAL ELOINA: 03/03/25 Notes Visit Date: 02/16/25 Last Updated by: Melanie Arroyo CNM 02/16/25: Discussed dating with Dr Louise/Azam: * final ELOINA: 03/03/25 Visit Date: 02/07/25 Last Updated by: Melanie Arroyo CNM 02/07: GBS- final ELOINA: Visit Date: 01/26/25 Last Updated by: Melanie Arroyo CNM [facility] sono 01/18/23: IUP35 week. ELOINA based on this sono: +3wk, change ELOINA to 02/22/25 Visit Date: 12/29/24 Last Updated by: Melanie Arroyo CNM 39 yo . LMP 05/27/24. EDC 03/03/25. 1st sono: 09/08/24: 13w1. EDC: 03/15/25. O+,abs-,hbsag-,hiv-,HC-, GC/CT-, RPR:1:1, Reactive, TPA-, rub imm, Visit Date: 12/01/24 Last Updated by: Melanie Arroyo CNM 11/29 3rd tri lab: A1c: 4.9, 1 hr gtt: 121. RPR:1:1/TPA- Visit Date: 11/08/24 Last Updated by: Melanie Arroyo CNM 38 yo . poor dates. O+,abs-,rpr;;reactive, 1:1, TPA-, gc/ct-, hbsag- , hiv-,HC- NIPT-/Boy, SMA and CF- EDC 03/15/25, based on 13 week sono Office Procedures OBC Clinic LOC & Office Proc's Nursing/Assessment Patient Status: Established Patient OB Clinic Nursing Assessment: Medication Reconciliation, Update PMH in EMR and Vital Signs OB Clinic Coordination of Care: Complex Care and Chronic Disease 1-5, Education Complex Pt/Fam and Consent,records obtained, informed consent Special Needs: Heart tones Established Patient Charge Established Patient Point Assignment: 110 Established Patient Point Charge: EP Level 3 (80-115) Assessment & Plan Diagnosis / Problem List (1) Encounter for supervision of high risk in third trimester, antepartum: Status: Acute Plan Consent for tubal ligation today. Reviewed dates with patient final ELOINA March 03, 2025. Discussed labor precautions and kick count continue prenatals. Increase fluids and return in a week OB to Additional Plan Follow Up: 1 Week (obc)
== END 2025-02-16 08:59 | disposition home or self-care (01) ==
LOC: HODSOBC 08:12
PROVIDERS: Supervising Provider Advanced Practice Midwife; Visit Provider Advanced Practice Midwife
DX: O09.523 Supervision of elderly multigravida, third trimester (principal); Z3A.37 37 weeks gestation of pregnancy
CPT/HCPCS: 99213; G0463

== ENCOUNTER 2025-02-24 10:09 | Outpatient (AMB) | payer MEDICAID, SELFPAY ==
--- NOTE | 2025-02-24 10:23 | OBCLNT_ITS ---
Vital Signs 02/24/25 10:24 Height 1.7 m Height Method Stated Weight 88.11 kg Weight Measurement Method Standing Scale BMI 30.4 BP 138/88 H Blood Pressure Source Automatic Cuff Blood Pressure Location Right Upper Arm Position Sitting Respiration 17 Pulse 65 Pulse Source Monitor Temp 97.4 F Temp Source Temporal Artery Scan Pulse Oximetry (%) 98 Oxygen Delivery Method Room Air Allergies/Home Meds Allergies & Medications Allergies No Known Allergies Allergy (Verified 02/24/25 10:25) Medication Reconciliation vitamins with calcium no.72-iron 27 mg-folic acid 1 mg tablet ( Vitamins Plus Low Iron) 1 tab PO QDAY 90 days #90 tabs 09/23/24 [Rx Confirmed 02/24/25] ferrous sulfate 325 mg (65 mg iron) tablet 325 mg PO BID 90 days #180 tabs 10/06/24 [Rx Confirmed 02/24/25] Intake Visit Data Collection New Patient or Established: Established Patient (seen at [facility] within 3 years) Reason for Visit:: OBC Seen by Clinical Staff ONLY (RN/MA): No Conference Manager Required: No Do You Feel Safe at Home: Yes Authorities Contacted: N/A PCP or OBGYN visit in last 3 months: Yes Date of Last PCP or OBGYN visit: 02/16/25 Hx Now: Yes Are you currently on any form of Control: No Pain Present Currently: No Pain Scale Used: Jacob-Iyer/Numerical Pain scale:: 0 Smoking Status Smoking Status: Never smoker Questionnaires Covid-19 Vaccine Questionnaire Has patient been vacinated for Covid-19 Have you been vacinated for Covid-19: No PHQ-9 PHQ-2 Over the last 2 weeks, how often have you been bothered by any of the following problems? 1. Little interest or pleasure in doing things: not at all 2. Feeling down, depressed, or hopeless: not at all Total score: 0 PHQ-9 3. Trouble falling or staying asleep, or sleeping too much: Not at all 4. Feeling tired or having little energy: Not at all 5. Poor appetite or overeating: Not at all 6. Feeling bad about yourself - or that you are a failure or have let yourself or your family down: Not at all 7. Trouble concentrating on things, such as reading the newspaper or watching television: Not at all 8. Moving or speaking so slowly that other people could have noticed? - Or the opposite - being so fidgety or restless that you have been moving around a lot more than usual: not at all 9. Thoughts that you would be better off or of hurting yourself in some way: Not at all Total score: 0 If you checked off any problems, how difficult have these problems made it for you to do your work, take care of things at home, or get along with other people?: not difficult at all Source: Developed by Drs. Kevin Holliday, Tami Pang, Sathya Lerner and colleagues, with an educational robby from [employer]. 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 Past Medical History: No Hx Neurological Disorders, No Hx Breast Cancer, No Hx Cardiac Disorders, No Hx Cancer, No Hx Blood Disorders, No Hx Gastrointestinal Disorders, No Hx Renal Disease, No Hx Diabetes Mellitus Type 1, No Hx Diabetes Mellitus Type 2 and No Hx Hysterectomy Care OB Visit Log OB Flowsheet Initial Weight: Not Recorded Date -?-?-?-?-?-?-?-?-?-?-?-?- EGA Weight BP Alb Glu CTX Pres Fundal ht FHR Mov Dilation Station Effacement Hx Notes Visit Note 09/08/24 -?-?-?-?-?-?-?-?-?-?-?-?- 14w 6d 83.461 kg 113/74 145 OBI: Lucia Babcock is a 38-year-old who presents for her initial visit at 14 weeks and 6 days gestation based on her last menstrual period of May 26, 2024. Regarding her obstetric history, the pat ient has had two full-term vaginal deliveries, one second-trimester loss at 15 weeks in July 2021, and two miscarriages. 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 - Order initial labs including genetic testing for aneuploidy screening - Refer for anatomy survey ultrasound at 20 weeks gestation at [facility] - Continue care with regular fo llow-up visits - Discontinue current vitamin p rescription - Recommend trial of [id number] pr enatal gummy vitamins - Educate patient that temporary discont inuation of vitamins is acceptable 10/06/24 -?-?-?-?-?-?-?-?-?-?-?-?- 18w 6d 82.554 kg 109/71 Lucia Babcock, at 17w1d, presents for routine care. She reports difficulty tolerating vitamins due to digestive issues and has intermittently held them. No other complaints. Denies CTX/LOF/VB, reports good FM. Labs show mild anemia (Hgb 10.3), 1+ ketonuria, and reactive RPR with 1:1 titer (TPA negative). All other labs, including genetic screen, were normal. Male fetus confirmed. Plan: Switch to chewable or gummy vit pedro with iron Encourage increased hydration and regula r meals to reduce ketonuria Monitor RPR titer; no treatment needed i f TPA remains negative Continue routine care Follow up in 4 weeks 11/08/24 -?-?-?-?-?-?-?-?-?-?-?-?- 23w 4d 84.368 kg 108/72 absent unknown 22 145 active Doing well. taking PNV and iron. fetus active. MFM scan pending. no PTL complaints discuss PTL sign. increase fluid, discuss ptl precaution, 3rd tri labs ordered, MFM pending, continue PNV and iron and iron foods. RTC 3 week 12/01/24 -?-?-?-?-?-?-?-?-?-?-?-?- 26w 6d 85.786 kg 108/72 absent unknown 25 145 active Doing well. Patient takes iron and vitamins. Third trimester lab was done. Labs were normal and 1 hour GTT was 121. Denies contractions. Denies leaking. Denies bleeding Maternal- medicine appointment is pending. Discussed labor precautions. Increase fluids. Continue iron and vitamins. 12/29/24 -?-?-?-?-?-?-?-?-?-?-?-?- 30w 6d 85.389 kg absent cephalic 28 125 ac tive Doing well. Taking iron twice a day. Tries to eat lots of iron rich foods. Reports good movement. Denies labor complaints like bleeding, leaking, contractions. Declined Tdap today Offered Tda p. Patient declined. Discussed labor precautions. Continue to take iron twice a day. Increase fluids. Increase activity. Return in 3 weeks for OB check 01/26/25 -?-?-?-?-?-?-?-?-?-?-?-?- 34w 6d 87.317 kg 121/80 occasional cephalic 36 135 active Denies leaking, denies bleeding, occasional contractions. Reports good movement. No OB complaints Discussed states with patient. GBS today. Discussed labor precautions and kick count. Increase fluids. Continue prenatals. Return in a week OB check 02/07/25 -?-?-?-?-?-?-?-?-?-?-?-?- 36w 4d 87.317 kg 121/78 occasional cephalic 37 135 active Reports good movement. Denies leaking, denies bleeding, occasional contraction and pressure. Denies other OB complaints Discussed GBS results is negative with patient. Discussed labor precautions and kick count twice a day. Increase fluids. Continue prenatals. Return in a week OB check 02/16/25 -?-?-?-?-?-?-?-?-?-?-?-?- 37w 6d 75.07 kg 131/72 occasional cephalic 37 135 active Good movement. Occasional contraction and pressure. Denies leaking or bleeding. No OB complaints consent for BTL. Discussed dates with medical OB team. Final ELOINA March 03, 2025. Discussed labor precautions and kick count twice a day. Discussed danger signs symptoms and ER precautions. consent for BTL. Discussed dates with medical OB team. Final ELOINA March 03, 2025. Discussed labor precautions and kick count twice a day. Discussed danger signs symptoms and ER precautions. IOL 03/03/25 02/24/25 -?-?-?-?-?-?-?-?-?-?-?-?- 39w 0d 88.11 kg 138/88 occasional cephalic 38 135 active 2.5 -3 50 2+ protien, denies PIH complaints, Patient sent to labor and delivery for PIH eval. I discussed danger signs symptoms and ER precautions. Kick count twice a day. Increase fluids. Will schedule for induction March 03. ELOINA Calculator Estimated Delivery Date Method Current WG Current Estimate 03/03/25 LMP (Uncertain) 39w 0d Other Estimates 03/10/25 Ultrasound #1 38w 0d 02/22/25 Ultrasound #2 40w 2d 03/03/25 Manual 39w 0d efw: 53%,per MF M. FINAL ELOINA: 03/03/25 Notes Visit Date: 02/16/25 Last Updated by: Melanie Arroyo CNM 02/16/25: Discussed dating with Dr Louise/Azam: * final ELOINA: 03/03/25 Visit Date: 02/07/25 Last Updated by: Melanie Arroyo CNM 02/07: GBS- final ELOINA: Visit Date: 01/26/25 Last Updated by: Melanie Arroyo CNM [facility] sono 01/18/23: IUP35 week. ELOINA based on this sono: +3wk, change ELOINA to 02/22/25 Visit Date: 12/29/24 Last Updated by: Melanie Arroyo CNM 39 yo . LMP 05/27/24. EDC 03/03/25. 1st sono: 09/08/24: 13w1. EDC: 03/15/25. O+,abs-,hbsag-,hiv-,HC-, GC/CT-, RPR:1:1, Reactive, TPA-, rub imm, Visit Date: 12/01/24 Last Updated by: Melanie Arroyo CNM 11/29 3rd tri lab: A1c: 4.9, 1 hr gtt: 121. RPR:1:1/TPA- Visit Date: 11/08/24 Last Updated by: Melanie Arroyo CNM 38 yo . poor dates. O+,abs-,rpr;;reactive, 1:1, TPA-, gc/ct-, hbsag- , hiv-,HC- NIPT-/Boy, SMA and CF- EDC 03/15/25, based on 13 week sono Office Procedures OBC Clinic LOC & Office Proc's Nursing/Assessment Patient Status: Established Patient OB Clinic Nursing Assessment: Medication Reconciliation, Update PMH in EMR and Vital Signs OB Clinic Coordination of Care: Complex Care and Chronic Disease 1-5, Education Complex Pt/Fam, Consent,records obtained, informed consent and Staff clarify orders Special Needs: Heart tones Miscellaneous Interventions: Blood/Urine Collection and Pelvic no cultures Established Patient Charge Established Patient Point Assignment: 160 Established Patient Point Charge: EP Level 5 (160-above) Assessment & Plan Diagnosis / Problem List (1) Encounter for supervision of high risk in third trimester, antepartum: Status: Acute (2) High-risk in second trimester: Status: Acute Plan Scheduled for induction March 03. Discussed labor precautions and kick count. Discussed ER precautions. Patient sent to labor and delivery for PIH eval. I discussed PIH signs and symptoms and what to watch for. Return in a week OB check. Additional Plan Follow Up: 1 Week (obc)
[2025-02-24 10:24] VITALS: BP 138/88; PULSE 65; RESP 17; TEMP 36.3; O2SAT 98; BMI 30.4
== END 2025-02-24 10:42 | disposition home or self-care (01) ==
LOC: HODSOBC 10:09
PROVIDERS: Supervising Provider Advanced Practice Midwife; Visit Provider Advanced Practice Midwife
DX: O09.523 Supervision of elderly multigravida, third trimester (principal); O09.43 Supervision of pregnancy with grand multiparity, third trimester; Z3A.39 39 weeks gestation of pregnancy
CPT/HCPCS: 99214; 99215; G0463

== ENCOUNTER 2025-02-24 11:01 | Observation (INO) | payer MEDICAID, SELFPAY ==
[2025-02-24 11:49] LABS: Basophils # (Auto) 0.0 Thou/mm3 (0.0-0.2); Basophils % (Auto) 0 % (0-2.5); Eosinophils # (Auto) 0.0 Thou/mm3 (0.0-0.5); Eosinophils % (Auto) 0 % (0-10); Hematocrit 29.7 % (36.0-46.0); Hemoglobin 10.0 g/dL (12.0-16.0); Immature Granulocytes Auto 0.02 Thou/mm3 (0.00-0.00); Lymphocytes # (Auto) 1.0 Thou/mm3 (1.0-4.8); Lymphocytes % (Auto) 15 % (10-50); Mean Corpuscular HGB Conc 33.7 g/dl (31.0-37.0); Mean Corpuscular Hemoglobin 27.2 pg (25.0-35.0); Mean Corpuscular Volume 81 fL (80-100); Monocytes # (Auto) 0.6 Thou/mm3 (0.0-0.8); Monocytes % (Auto) 9 % (0-12); Neutrophils # (Auto) 5.0 Thou/mm3 (1.8-7.7); Neutrophils % (Auto) 75 % (37-80); Nucleated Red Blood Cell # 0.00 Thou/mm3 (0.00-0.00); Nucleated Red Blood Cell % 0 /100 WBC (0); Platelet Count 243 Thou/mm3 (140-440); RDW Standard Deviation 39.8 fL (36.4-46.3); Red Blood Count 3.67 Miln/mm3 (4.00-5.20); White Blood Count 6.7 Thou/mm3 (3.6-11.0)
[2025-02-24 12:15] VITALS: BMI 30.2
[2025-02-24 12:20] VITALS: BP 142/79; PULSE 60
[2025-02-24 12:20] LABS: Fibrinogen 553 mg/dL (175-375); INR 0.9 (0.9-1.3); Partial Thromboplastin Time 25.0 Seconds (22.0-36.0); Prothrombin Time 9.8 Seconds (9.0-12.2)
[2025-02-24 12:30] LABS: Alanine Aminotransferase < 7 U/L (10-49); Albumin, Serum 3.5 gm/dL (3.5-5.0); Albumin/Globulin Ratio 1.3 (1.2-2.2); Alkaline Phosphatase 161 U/L (46-116); Anion Gap 9 (7-16); Aspartate Amino Transferase 12 U/L (0-34); BUN/Creatinine Ratio 12 Ratio (12-20); Bilirubin,Total 0.4 mg/dL (0.3-1.2); Blood Urea Nitrogen 7 mg/dL (9-23); Calcium 8.5 mg/dL (8.3-10.6); Calcium (Corrected) 8.9 mg/dL (8.5-10.1); Carbon Dioxide 23.2 mMol/L (20.0-31.0); Chloride 106 mMol/L (98-107); Creatinine (Component) 0.6 mg/dL (0.6-1.3); Globulin 2.8 gm/dL (2.3-3.5); Glucose 79 mg/dL (74-106); LDH (Lactate Dehydrogenase) 137 U/L (120-246); Osmolality,Calculated 272 (275-295); Potassium 4.1 mMol/L (3.4-5.1); Sodium 138 mMol/L (136-145); Total Protein 6.3 gm/dL (5.7-8.2); Uric Acid 4.8 mg/dL (3.1-7.8); eGFR > 60 See Note
[2025-02-24 13:01] LABS: Collection Type, Urine Clean Catch
[2025-02-24 13:19] LABS: Bilirubin,Urine Negative (Negative); Blood,Urine Negative (Negative); Clarity,Urine Clear (Clear/Hazy); Color,Urine Lt-Yellow (Lt Yel-Yel); Glucose, Urine Negative (Negative); Ketones,Urine Negative (Negative); Leukocyte Esterase,Urine Negative (Negative); Nitrite,Urine Negative (Negative); PH,Urine 7.0 (5.0-7.0); Protein,Urine Negative (Neg - Trace); RBC,Urine 5 /hpf (0-3); Specific Gravity,Urine 1.011 (1.001-1.035); Squamous Epithelial Cell,Urine 1 /hpf (0-5); Urobilinogen,Urine Negative mg/dL (0.0-1.0); WBC,Urine 1 /hpf (0-5)
[2025-02-24 13:36] VITALS: BP 132/84; PULSE 70
[2025-02-24 13:37] VITALS: BP 148/89; PULSE 68
[2025-02-24 13:52] VITALS: BP 133/86; PULSE 62
[2025-02-24 14:07] VITALS: BP 133/87; PULSE 57
[2025-02-24 14:22] VITALS: BP 132/80; PULSE 62
--- NOTE | 2025-02-24 14:22 | PC.NURSE ---
Pt scheduled for IOL on 03/02/2025 Pt to return for NST/BPP on 02/28/2025
== END 2025-02-24 14:30 | disposition home or self-care (01) ==
PROVIDERS: Advanced Practice Midwife; Admitting Provider Obstetrics & Gynecology; Visit Provider Obstetrics & Gynecology
DX: Z34.90 Encounter for supervision of normal pregnancy, unspecified, unspecified trimester (principal); Z3A.00 Weeks of gestation of pregnancy not specified
CPT/HCPCS: 36415; 59025; 59899; 80053; 81001; 83615; 84550; 85025; 85384; 85610; 85730

== ENCOUNTER 2025-02-28 09:35 | Outpatient (CLI) | payer MEDICAID, SELFPAY ==
[2025-02-28] VITALS (10 sets, daily range): BP systolic 123–137; BP diastolic 76–92; PULSE 62–76; RESP 16–100; TEMP 36.9; O2SAT 99–100; BMI 30.4; BMI 67.1
== END 2025-02-28 12:11 | disposition home or self-care (01) ==
LOC: S4S1 09:37 → S4SX 09:38
PROVIDERS: Referring Provider Advanced Practice Midwife; Visit Provider Advanced Practice Midwife
DX: Z34.83 Encounter for supervision of other normal pregnancy, third trimester (principal); Z36.9 Encounter for antenatal screening, unspecified; Z3A.39 39 weeks gestation of pregnancy
CPT/HCPCS: 59025

== ENCOUNTER 2025-03-01 10:04 | Outpatient (AMB) | payer MEDICAID, SELFPAY ==
[2025-03-01 10:36] VITALS: BP 137/87; PULSE 79; RESP 16; TEMP 36.2; O2SAT 98; BMI 30.2
--- NOTE | 2025-03-01 10:36 | OBCLNT_ITS ---
Vital Signs 03/01/25 10:36 Height 1.7 m Height Method Stated Weight 87.572 kg Weight Measurement Method Standing Scale BMI 30.2 BP 137/87 H Blood Pressure Source Automatic Cuff Blood Pressure Location Left Upper Arm Position Sitting Respiration 16 Pulse 79 Pulse Source Monitor Temp 97.2 F Temp Source Oral Pulse Oximetry (%) 98 Oxygen Delivery Method Room Air Allergies/Home Meds Allergies & Medications Allergies No Known Allergies Allergy (Verified 03/01/25 10:39) Medication Reconciliation vitamins with calcium no.72-iron 27 mg-folic acid 1 mg tablet ( Vitamins Plus Low Iron) 1 tab PO QDAY 90 days #90 tabs 09/23/24 [Rx Confirmed 03/01/25] ferrous sulfate 325 mg (65 mg iron) tablet 325 mg PO BID 90 days #180 tabs 10/06/24 [Rx Confirmed 03/01/25] Intake Visit Data Collection New Patient or Established: Established Patient (seen at [facility] within 3 years) Reason for Visit:: OBC Seen by Clinical Staff ONLY (RN/MA): No Cook Specialty Required: No Do You Feel Safe at Home: Yes Authorities Contacted: N/A PCP or OBGYN visit in last 3 months: Yes Date of Last PCP or OBGYN visit: 02/28/25 Hx Now: Yes Are you currently on any form of Control: No Pain Present Currently: No Pain Scale Used: Jacob-Iyer/Numerical Pain scale:: 0 Smoking Status Smoking Status: Never smoker Questionnaires Covid-19 Vaccine Questionnaire Has patient been vacinated for Covid-19 Have you been vacinated for Covid-19: No PHQ-9 PHQ-2 Over the last 2 weeks, how often have you been bothered by any of the following problems? 1. Little interest or pleasure in doing things: not at all 2. Feeling down, depressed, or hopeless: not at all Total score: 0 PHQ-9 3. Trouble falling or staying asleep, or sleeping too much: Not at all 4. Feeling tired or having little energy: Not at all 5. Poor appetite or overeating: Not at all 6. Feeling bad about yourself - or that you are a failure or have let yourself or your family down: Not at all 7. Trouble concentrating on things, such as reading the newspaper or watching television: Not at all 8. Moving or speaking so slowly that other people could have noticed? - Or the opposite - being so fidgety or restless that you have been moving around a lot more than usual: not at all 9. Thoughts that you would be better off or of hurting yourself in some way: Not at all Total score: 0 If you checked off any problems, how difficult have these problems made it for you to do your work, take care of things at home, or get along with other people?: not difficult at all Source: Developed by Drs. Kevin Holliday, Tami Pang, Sathya Lerner and colleagues, with an educational robby from [employer]. 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 Feel Safe at Home: Yes [employer]: Past Medical History Past Medical History: No Hx Neurological Disorders, No Hx Breast Cancer, No Hx Cardiac Disorders, No Hx Cancer, No Hx Blood Disorders, No Hx Gastrointestinal Disorders, No Hx Renal Disease, No Hx Diabetes Mellitus Type 1, No Hx Diabetes Mellitus Type 2 and No Hx Hysterectomy Care OB Visit Log OB Flowsheet Initial Weight: Not Recorded Date -?-?-?-?-?-?-?-?-?-?-?-?- EGA Weight BP Alb Glu CTX Pres Fundal ht FHR Mov Dilation Station Effacement Hx Notes Visit Note 09/08/24 -?-?-?-?-?-?-?-?-?-?-?-?- 14w 6d 83.461 kg 113/74 145 OBI: Lucia Babcock is a 38-year-old who presents for her initial visit at 14 weeks and 6 days gestation based on her last menstrual period of May 26, 2024. Regarding her obstetric history, the pat ient has had two full-term vaginal deliveries, one second-trimester loss at 15 weeks in July 2021, and two miscarriages. 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 - Order initial labs including genetic testing for aneuploidy screening - Refer for anatomy survey ultrasound at 20 weeks gestation at [facility] - Continue care with regular fo llow-up visits - Discontinue current vitamin p rescription - Recommend trial of [id number] pr enatal gummy vitamins - Educate patient that temporary discont inuation of vitamins is acceptable 10/06/24 -?-?-?-?-?-?-?-?-?-?-?-?- 18w 6d 82.554 kg 109/71 Lucia Babcock, at 17w1d, presents for routine care. She reports difficulty tolerating vitamins due to digestive issues and has intermittently held them. No other complaints. Denies CTX/LOF/VB, reports good FM. Labs show mild anemia (Hgb 10.3), 1+ ketonuria, and reactive RPR with 1:1 titer (TPA negative). All other labs, including genetic screen, were normal. Male fetus confirmed. Plan: Switch to chewable or gummy vit pedro with iron Encourage increased hydration and regula r meals to reduce ketonuria Monitor RPR titer; no treatment needed i f TPA remains negative Continue routine care Follow up in 4 weeks 11/08/24 -?-?-?-?-?-?-?-?-?-?-?-?- 23w 4d 84.368 kg 108/72 absent unknown 22 145 active Doing well. taking PNV and iron. fetus active. MFM scan pending. no PTL complaints discuss PTL sign. increase fluid, discuss ptl precaution, 3rd tri labs ordered, MFM pending, continue PNV and iron and iron foods. RTC 3 week 12/01/24 -?-?-?-?-?-?-?-?-?-?-?-?- 26w 6d 85.786 kg 108/72 absent unknown 25 145 active Doing well. Patient takes iron and vitamins. Third trimester lab was done. Labs were normal and 1 hour GTT was 121. Denies contractions. Denies leaking. Denies bleeding Maternal- medicine appointment is pending. Discussed labor precautions. Increase fluids. Continue iron and vitamins. 12/29/24 -?-?-?-?-?-?-?-?-?-?-?-?- 30w 6d 85.389 kg absent cephalic 28 125 ac tive Doing well. Taking iron twice a day. Tries to eat lots of iron rich foods. Reports good movement. Denies labor complaints like bleeding, leaking, contractions. Declined Tdap today Offered Tda p. Patient declined. Discussed labor precautions. Continue to take iron twice a day. Increase fluids. Increase activity. Return in 3 weeks for OB check 01/26/25 -?-?-?-?-?-?-?-?-?-?-?-?- 34w 6d 87.317 kg 121/80 occasional cephalic 36 135 active Denies leaking, denies bleeding, occasional contractions. Reports good movement. No OB complaints Discussed states with patient. GBS today. Discussed labor precautions and kick count. Increase fluids. Continue prenatals. Return in a week OB check 02/07/25 -?-?-?-?-?-?-?-?-?-?-?-?- 36w 4d 87.317 kg 121/78 occasional cephalic 37 135 active Reports good movement. Denies leaking, denies bleeding, occasional contraction and pressure. Denies other OB complaints Discussed GBS results is negative with patient. Discussed labor precautions and kick count twice a day. Increase fluids. Continue prenatals. Return in a week OB check 02/16/25 -?-?-?-?-?-?-?-?-?-?-?-?- 37w 6d 75.07 kg 131/72 occasional cephalic 37 135 active Good movement. Occasional contraction and pressure. Denies leaking or bleeding. No OB complaints consent for BTL. Discussed dates with medical OB team. Final ELOINA March 03, 2025. Discussed labor precautions and kick count twice a day. Discussed danger signs symptoms and ER precautions. consent for BTL. Discussed dates with medical OB team. Final ELOINA March 03, 2025. Discussed labor precautions and kick count twice a day. Discussed danger signs symptoms and ER precautions. IOL 03/03/25 02/24/25 -?-?--?-?-?-?-?-?-?-?-?-?- 39w 0d 88.11 kg 138/88 occasional cephalic 38 135 active 2.5 -3 50 2+ protien, denies PIH complaints, Patient sent to labor and delivery for PIH eval. I discussed danger signs symptoms and ER precautions. Kick count twice a day. Increase fluids. Will schedule for induction March 03. ELOINA Calculator Estimated Delivery Date Method Current WG Current Estimate 03/03/25 LMP (Uncertain) 39w 5d Other Estimates 03/10/25 Ultrasound #1 38w 5d 02/22/25 Ultrasound #2 41w 0d 03/03/25 Manual 39w 5d efw: 53%,per MF M. FINAL ELOINA: 03/03/25 Notes Visit Date: 02/16/25 Last Updated by: Melanie Arroyo CNM 02/16/25: Discussed dating with Dr Louise/Azam: * final ELOINA: 03/03/25 Visit Date: 02/07/25 Last Updated by: Melanie Arroyo CNM 02/07: GBS- final ELOINA: Visit Date: 01/26/25 Last Updated by: Melanie Arroyo CNM [facility] sono 01/18/23: IUP35 week. ELOINA based on this sono: +3wk, change ELOINA to 02/22/25 Visit Date: 12/29/24 Last Updated by: Melanie Arroyo CNM 39 yo . LMP 05/27/24. EDC 03/03/25. 1st sono: 09/08/24: 13w1. EDC: 03/15/25. O+,abs-,hbsag-,hiv-,HC-, GC/CT-, RPR:1:1, Reactive, TPA-, rub imm, Visit Date: 12/01/24 Last Updated by: Melanie Arroyo CNM 11/29 tri lab: A1c: 4.9, 1 hr gtt: 121. RPR:1:1/TPA- Visit Date: 11/08/24 Last Updated by: Melanie Arroyo CNM 38 yo . poor dates. O+,abs-,rpr;;reactive, 1:1, TPA-, gc/ct-, hbsag- , hiv-,HC- NIPT-/Boy, SMA and CF- EDC 03/15/25, based on 13 week sono Office Procedures OBC Clinic LOC & Office Proc's Nursing/Assessment Patient Status: Established Patient OB Clinic Nursing Assessment: Medication Reconciliation, Update PMH in EMR and Vital Signs OB Clinic Coordination of Care: Education Complex Pt/Fam, Consent,records obtained, informed consent, Lab and Imaging orders, Results/Orders obtained and Staff clarify orders Special Needs: Heart tones Established Patient Charge Established Patient Point Assignment: 115 Established Patient Point Charge: EP Level 3 (80-115) Assessment & Plan Diagnosis / Problem List (1) Encounter for supervision of high risk in third trimester, antepartum: Status: Acute Plan Induction of labor March 03. Discussed labor precautions and kick count. Discussed PIH precautions. Return in a week OB check if undelivered
== END 2025-03-01 11:12 | disposition home or self-care (01) ==
LOC: HODSOBC 10:04
PROVIDERS: Supervising Provider Advanced Practice Midwife; Visit Provider Advanced Practice Midwife
DX: O09.93 Supervision of high risk pregnancy, unspecified, third trimester (principal); Z3A.39 39 weeks gestation of pregnancy
CPT/HCPCS: 99213; G0463

== ENCOUNTER 2025-03-02 20:32 | Inpatient (IN) | payer MEDICAID, SELFPAY ==
[2025-03-02] VITALS (21 sets, daily range): BP systolic 122–153; BP diastolic 64–96; PULSE 56–86; RESP 16; TEMP 36.7; O2SAT 98–100; BMI 30.4
--- NOTE | 2025-03-02 21:38 | XR_ITS ---
Examination: Complete OB ultrasound greater than 14 weeks Date and time of exam: March 02, 2025, 1006 hours INDICATIONS: Preop labor induction today Findings: Viable intrauterine single fetus with single amniotic sac presentation cephalic Cardiac motion 138 bpm Placenta posterior grade 3 Clinical cord insertion 3 vessels seen Amniotic fluid index 7.0 cm spine maternal right Cervix 3.7 cm Ovaries obscured by bowel gas. Composite estimated gestational age based on BPD, head circumference, abdominal circumference, femur length is 39 weeks 6 days Estimated weight 3958 g. Survey of intracranial anatomy, spinal anatomy, abdominal anatomy, four-chamber heart performed with no abnormalities identified. Impression: Viable intrauterine gestation cephalic presentation.
[2025-03-02 22:04] LABS: Basophils # (Auto) 0.0 Thou/mm3 (0.0-0.2); Basophils % (Auto) 0 % (0-2.5); Eosinophils # (Auto) 0.0 Thou/mm3 (0.0-0.5); Eosinophils % (Auto) 0 % (0-10); Hematocrit 28.5 % (36.0-46.0); Hemoglobin 9.6 g/dL (12.0-16.0); Immature Granulocytes Auto 0.04 Thou/mm3 (0.00-0.00); Lymphocytes # (Auto) 1.5 Thou/mm3 (1.0-4.8); Lymphocytes % (Auto) 20 % (10-50); Mean Corpuscular HGB Conc 33.7 g/dl (31.0-37.0); Mean Corpuscular Hemoglobin 27.0 pg (25.0-35.0); Mean Corpuscular Volume 80 fL (80-100); Monocytes # (Auto) 0.7 Thou/mm3 (0.0-0.8); Monocytes % (Auto) 9 % (0-12); Neutrophils # (Auto) 5.2 Thou/mm3 (1.8-7.7); Neutrophils % (Auto) 69 % (37-80); Nucleated Red Blood Cell # 0.00 Thou/mm3 (0.00-0.00); Nucleated Red Blood Cell % 0 /100 WBC (0); Platelet Count 277 Thou/mm3 (140-440); RDW Standard Deviation 38.8 fL (36.4-46.3); Red Blood Count 3.56 Miln/mm3 (4.00-5.20); White Blood Count 7.5 Thou/mm3 (3.6-11.0)
[2025-03-02 22:11] LABS: Amphetamine/Metham Scrn,Ur OB Negative (Negative); Benzoylecgonine Screen, Ur OB Negative (Negative); Opiate Screen,Urine OB Negative (Negative); THC Screen,Urine OB Negative (Negative)
[2025-03-02 22:30] LABS: Fibrinogen 538 mg/dL (175-375); INR 0.9 (0.9-1.3); Partial Thromboplastin Time 24.8 Seconds (22.0-36.0); Prothrombin Time 9.6 Seconds (9.0-12.2)
[2025-03-02] MEDS: RINGERS LACTATED 1000 ML 1,000 ML 125 ML IV (22:38)
[2025-03-02 22:42] LABS: Alanine Aminotransferase < 7 U/L (10-49); Albumin, Serum 3.5 gm/dL (3.5-5.0); Albumin/Globulin Ratio 1.3 (1.2-2.2); Alkaline Phosphatase 171 U/L (46-116); Anion Gap 13 (7-16); Aspartate Amino Transferase 12 U/L (0-34); BUN/Creatinine Ratio 20 Ratio (12-20); Bilirubin,Total 0.3 mg/dL (0.3-1.2); Blood Urea Nitrogen 10 mg/dL (9-23); Calcium 8.5 mg/dL (8.3-10.6); Calcium (Corrected) 8.9 mg/dL (8.5-10.1); Carbon Dioxide 20.1 mMol/L (20.0-31.0); Chloride 107 mMol/L (98-107); Creatinine (Component) 0.5 mg/dL (0.6-1.3); Estimated Creatinine Clearance 174.0 mL/min (>60); Globulin 2.6 gm/dL (2.3-3.5); Glucose 104 mg/dL (74-106); LDH (Lactate Dehydrogenase) 159 U/L (120-246); Osmolality,Calculated 278 (275-295); Potassium 3.8 mMol/L (3.4-5.1); Sodium 140 mMol/L (136-145); Total Protein 6.1 gm/dL (5.7-8.2); Uric Acid 5.1 mg/dL (3.1-7.8); eGFR > 60 See Note
[2025-03-02 22:49] LABS: Syphilis Nonreactive (Nonreactive)
[2025-03-03] VITALS (100 sets, daily range): BP systolic 122–173; BP diastolic 69–96; PULSE 55–100; RESP 16–18; TEMP 36.7–37.2; O2SAT 92–100
[2025-03-03 02:58] LABS: Collection Type, Urine Clean Catch
[2025-03-03 03:10] LABS: Bilirubin,Urine Negative (Negative); Blood,Urine Negative (Negative); Clarity,Urine Clear (Clear/Hazy); Color,Urine Lt-Yellow (Lt Yel-Yel); Glucose, Urine Negative (Negative); Ketones,Urine Negative (Negative); Leukocyte Esterase,Urine Negative (Negative); Nitrite,Urine Negative (Negative); PH,Urine 6.5 (5.0-7.0); Protein,Urine Negative (Neg - Trace); RBC,Urine < 1 /hpf (0-3); Specific Gravity,Urine 1.025 (1.001-1.035); Squamous Epithelial Cell,Urine 1 /hpf (0-5); Urobilinogen,Urine Negative mg/dL (0.0-1.0); WBC,Urine 1 /hpf (0-5)
[2025-03-03 03:17] LABS: Creatinine,Random Urine 106 mg/dL (30-125); Protein Total, Random Urine 22 mg/dL (1-14)
[2025-03-03] MEDS: OXYTOCIN in NS 30 units 30 UNIT/500 ML BAG IV (03:22)
[2025-03-03] MEDS: RINGERS LACTATED 1000 ML 1,000 ML 125 ML IV ×2 (03:52→04:44)
[2025-03-03] MEDS: MINERAL OIL 30 ML UDC TOP (07:32)
[2025-03-03] MEDS: OXYTOCIN INJ 10 UNIT/ML VIAL IM (07:33)
[2025-03-03] MEDS: TRANEXAMIC ACID 1,000 MG IVPB 1,000 MG/100 ML BAG 200 MG IV ×2 (07:33→08:47)
[2025-03-03] MEDS: OXYTOCIN in NS 20 units 20 UNIT/1,000 ML BAG 125 UNIT IV (08:02)
--- NOTE | 2025-03-03 08:12 | ESHP_ITS ---
Documentation for date of: 03/03/25 OB Labor/Induct. HPI History of Present Illness Chief complaint: induction : 5 Para: 2 Term pregnancies: 2 pregnancies: 0 Living children: 2 History of Abortions: Spontaneous and Elective: 2 History of Vaginal deliveries: 2 History of sections: No History of : No Date of last menstrual period: 05/26/24 ELOINA: 03/03/25 Gestational Age (weeks): 40 Gestational Age (days): 0 Gestational age based on last menstrual period: 40 History of present illness: 39-year-old 5 para 2 admit to labor and delivery for induction of labor due to macrosomia. Baby was measuring 99th percentile. Patient previous biggest baby was 7 pounds. Last. May 26, 2024. Estimated due date March 03, 2025. Patient has been followed at [facility] OB clinic. Her first visit was at 16 weeks. She had a 13-week ultrasound that confirmed EDC of 03/03/2025. Patient is O+, antibody screen negative, RPR was reactive. Titer 1-1 and tPA negative. GBS negative. NIPT Carrier screen negative hepatitis B negative, hep C negative, HIV negative, and her 1 hour was normal. GC and chlamydia were also negative. Patient denies social habits. Denies surgery. Denies chronic illness History of Present Dating criteria: LMP confirmed by 1st trimester US Ultrasounds: normal 1st trimester US and normal mid trimester US Obstetrical complications: none Medical complications: none Labs Labs: Negative: RPR, Hepatitis B, Rubella Titre, HIV, Chlamydia, Gonorrhea and Group Beta Strep and Unknown: Herpes Type 1, Herpes Type 2 and Covid-19 Review of Systems Review of Systems Systems Reviewed: All systems reviewed, normal except as documented Past Medical History Surgical History SURGICAL: Negative Section Meds Home Medications and Allergies Allergies Allergy/AdvReac Type Severity Reaction Status Date / Time No Known Allergies Allergy Verified 03/03/25 01:27 OB Exam Physical Exam Vital signs: Temp Pulse Resp BP Pulse Ox 98.7 F 64 16 167/72 H 100 03/03/25 05:41 03/03/25 08:07 03/02/25 20:38 03/03/25 08:07 03/03/25 08:06 Narrative: Alert and oriented. Normal heart rate and rhythm. Lungs clear no wheezes. Gravid abdomen. Gynecoid pelvis. Estimated weight 8-1/2 pounds. Over the 3900 g. Exam on admission was 50%, 3, -3. Vertex. Bag water intact. heart rate category 1 with accelerations and moderate variability and occasional contraction. Routine Cardiovascular Exam Cardiovascular: Present RRR Routine Abdominal Exam Abdominal: Present soft Detailed Labor and Delivery Exam Dilation (cm): 3 Effacement (%): 50 Cervix position: mid station: -3 Consistency: soft Presentation: Vertex Cervical ripeness score: 6 Membranes: intact Baseline heart rate: 145 monitor accelerations: 15x15 monitor decelerations: None assisted variability: Moderate (11-25) Contraction frequency (min): occ Contraction duration (sec): 30 Tachysystole: No Contraction intensity: Mild OB Results Labs 03/02/25 21:00 03/02/25 21:00 Labs: Short CBC 03/02/25 Range/Units 21:00 WBC 7.5 (3.6-11.0) Thou/mm3 Hgb 9.6 L (12.0-16.0) g/dL Hct 28.5 L (36.0-46.0) % Plt Count 277 D (140-440) Thou/mm3 BMP 03/02/25 21:00 Sodium 140 Potassium 3.8 Chloride 107 Carbon Dioxide 20.1 BUN 10 Creatinine 0.5 L Glucose 104 Calcium 8.5 Liver Function 03/02/25 Range/Units 21:00 Total Bilirubin 0.3 (0.3-1.2) mg/dL AST 12 (0-34) U/L ALT < 7 L (10-49) U/L Alkaline Phosphatase 171 H (46-116) U/L Albumin 3.5 (3.5-5.0) gm/dL Urine 03/03/25 Range/Units 02:41 Urine Color Lt-Yellow (Lt Yel-Yel) Urine Clarity Clear (Clear/Hazy) Urine pH 6.5 (5.0-7.0) Ur Specific [place] 1.025 (1.001-1.035) Urine Protein Negative (Neg - Trace) Urine Glucose (UA) Negative (Negative) OB Assessment & Plan Additional Plan Induction method: per misoprostol protocol (pitocin to follow) Plan: induction, anticipate NVD and consult MD mensah
[2025-03-03] MEDS: IBUPROFEN TAB 400 MG TABLET 800 MG PO (08:49)
[2025-03-03 18:06] LABS: Basophils # (Auto) 0.0 Thou/mm3 (0.0-0.2); Basophils % (Auto) 0 % (0-2.5); Eosinophils # (Auto) 0.0 Thou/mm3 (0.0-0.5); Eosinophils % (Auto) 0 % (0-10); Hematocrit 27.0 % (36.0-46.0); Hemoglobin 9.0 g/dL (12.0-16.0); Immature Granulocytes Auto 0.06 Thou/mm3 (0.00-0.00); Lymphocytes # (Auto) 1.5 Thou/mm3 (1.0-4.8); Lymphocytes % (Auto) 12 % (10-50); Mean Corpuscular HGB Conc 33.3 g/dl (31.0-37.0); Mean Corpuscular Hemoglobin 26.6 pg (25.0-35.0); Mean Corpuscular Volume 80 fL (80-100); Monocytes # (Auto) 0.9 Thou/mm3 (0.0-0.8); Monocytes % (Auto) 7 % (0-12); Neutrophils # (Auto) 10.0 Thou/mm3 (1.8-7.7); Neutrophils % (Auto) 81 % (37-80); Nucleated Red Blood Cell # 0.00 Thou/mm3 (0.00-0.00); Nucleated Red Blood Cell % 0 /100 WBC (0); Platelet Count 223 Thou/mm3 (140-440); RDW Standard Deviation 38.3 fL (36.4-46.3); Red Blood Count 3.38 Miln/mm3 (4.00-5.20); White Blood Count 12.4 Thou/mm3 (3.6-11.0)
[2025-03-04 00:13] VITALS: BP 158/95; PULSE 65; O2SAT 99
[2025-03-04 00:31] VITALS: BP 158/95; PULSE 65
[2025-03-04] MEDS: LABETALOL 100 MG TABLET PO ×2 (00:31→08:43)
[2025-03-04 03:46] VITALS: BP 115/72; PULSE 77; RESP 16; TEMP 36.6; O2SAT 99
[2025-03-04 07:33] VITALS: BP 144/88; PULSE 63; RESP 16; TEMP 36.7; O2SAT 98
--- NOTE | 2025-03-04 08:33 | PD.LDPPPRG ---
Subjective Subjective Interval history: No complaints of pain. No dizziness. Bonding and breast-feeding. denies PIH complaints Exam Vital Signs Temp Pulse Resp BP Pulse Ox O2 Del Method 98.1 F 63 16 144/88 H 98 Room Air 03/04/25 07:33 03/04/25 07:33 03/04/25 07:33 03/04/25 07:33 03/04/25 07:33 03/04/25 07:33 Narrative Exam Vital signs stable afebrile. Breasts are soft. Fundus firm below the umbilicus. Perineum intact no swelling. Small lochia. Uterus well involuted. 2+ DTRs. No edema. Objective Labs 03/03/25 17:56 03/02/25 21:00 Labs: Laboratory Results - last 24 hr 03/03/25 17:56 WBC 12.4 H D RBC 3.38 L Hgb 9.0 L Hct 27.0 L MCV 80 MCH 26.6 MCHC 33.3 RDW Std Deviation 38.3 Plt Count 223 D Neut % (Auto) 81 H Lymph % (Auto) 12 [place] % (Auto) 7 Eos % (Auto) 0 Baso % (Auto) 0 Neut # (Auto) 10.0 H Lymph # (Auto) 1.5 [place] # (Auto) 0.9 H Eos # (Auto) 0.0 Baso # (Auto) 0.0 Immature Gran # (Auto) 0.06 H Absolute Nucleated RBC 0.00 Immature Gran % 1 H Nucleated RBC % 0 Assessment & Plan Assessment Comment Assessment comment: 24 hr pp Plan Comment Plan Comment: I went home with baby. Continue vitamin. I discussed PIH precautions and signs and symptoms. Discussed ER precaution and parameter. Discussed signs and symptoms of infection. And I discussed danger signs and symptoms as well. I am sending patient home on labetalol 200 mg twice daily. Patient is to keep her appointment in 5 days. Time Spent With Patient Time: Total time spent is greater than 50% in coordination of care (as documented) at patient's floor/unit and/or counseling patient:
--- NOTE | 2025-03-04 08:37 | PD.LDDS ---
DS: Providers Provider Date of admission: 03/02/25 20:32 Primary care physician: Physician No Primary/Family Admitting Provider: Melanie Arroyo CNM Attending Provider on Admission: Dyan Nascimento MD (OB Clinic) Consults: 03/03/25 08:35 Referral Routine Comment: Attending Provider on DC: Melanie Arroyo CNM Discharging Provider: Melanie Arroyo CNM DS: Diagnosis Problem List Completed Was Problem List Reviewed/Reconciled?: No Summary/Hosp Course Brief History: 39-year-old 5 para 2 admit to labor and delivery for induction of labor due to macrosomia. Baby was measuring 99th percentile. Patient previous biggest baby was 7 pounds. Last. May 26, 2024. Estimated due date March 03, 2025. Patient has been followed at [facility] OB clinic. Her first visit was at 16 weeks. She had a 13-week ultrasound that confirmed EDC of 03/03/2025. Patient is O+, antibody screen negative, RPR was reactive. Titer 1-1 and tPA negative. GBS negative. NIPT Carrier screen negative hepatitis B negative, hep C negative, HIV negative, and her 1 hour was normal. GC and chlamydia were also negative. Patient denies social habits. Denies surgery. Denies chronic illness Peripartum Data Delivery Method: Normal Vaginal Delivery Episiotomy Description: None Laceration Description: yes (perineal and labial) complications: other (elevated bp) Time Spent with Patient Time attestation: Total time spent providing and/or coordinating discharge services: Exam Vital Signs Temp Pulse Resp BP Pulse Ox O2 Del Method 98.1 F 63 16 144/88 H 98 Room Air 03/04/25 07:33 03/04/25 07:33 03/04/25 07:33 03/04/25 07:33 03/04/25 07:33 03/04/25 07:33 Discharge Plan Plan Patient Disposition: HOME (Self Care) Patient condition on transfer: Stable Prescriptions/Referrals Prescriptions/Med Rec: New labetalol 200 mg tablet 200 mg PO BID Qty: 30 2RF No Action ferrous sulfate 325 mg (65 mg iron) tablet 325 mg PO BID 90 Days Qty: 180 2RF Vitamin Plus Low Iron 27 mg iron- 1 mg tablet 1 tab PO QDAY 90 Days Qty: 90 6RF Referrals: No Primary/Family,Physician [Primary Care Provider] Patient/Caregiver Discharge Instructions Meds to Beds: No Discharge Activity: resume usual activities Print Language: French Activity Restrictions/Additional Instructions: Discharge home today. Continue vitamins and iron. Tylenol or ibuprofen for pain. I sent patient home on labetalol 200 twice daily. We discussed signs and symptoms of preeclampsia and what to watch for. Discussed danger signs and symptoms and ER precautions with parameters. Patient to return to hospital if she has a headache that does not respond to Tylenol. Discussed comfort measures for perineal laceration. And we discussed signs and symptoms of infection as well. Keep appointment in 5 days for BP check Stand Alone Forms: Shania Award Info., Patient Portal Info Letter Discharge Order Discharge Orders: Discharge (Routine); Ordered 03/04/25 Ordered By: Melanie Arroyo Planned Discharge Date 03/04/25
[2025-03-04 08:43] VITALS: BP 135/82; PULSE 68
--- NOTE | 2025-03-04 10:19 | PC.NURSE ---
according to SW, patient has necessary resources for safe discharge.
--- NOTE | 2025-03-04 10:24 | PC.CC ---
0900-ASW pt with pt at bedside to complete an initial assessment with the pt. Pt is a 39 yo female who gave to a male on 03/03/25 @ 0728. ASW explained that she was was late to care because she did not know she was . Pt reported that she went to see her OB provider to get on control and at that time the provider made her take a test. At that visit, pt found out she was . Pt reported she was shocked, but as soon as she discovered she was , she started care immediately. Pt reported her OB was [facility] at [facility]. Pt reports she has two children at home who are ages 9 and 5 years old. Pt reports she was ready for the infant and has all she needs at this time. Pt reports FOB is involved and his name is Alberto. Pt reports she is formula feeding the infant, delivered vaginally at 40 weeks gestational age. Pt reports she is bonding to the and has quality skin to skin time. Pt states the infant was not on Lights and does not have any medical concerns for the pt. Pt denied substance use/abuse, denies hx with CPS. At this time, there are no concerns with SS and pt is cleared with SS.
--- NOTE | 2025-03-04 12:19 | PC.NURSE ---
@[id number] verified with patient that she declined MMR
== END 2025-03-04 10:55 | disposition home or self-care (01) | DRG 560 ==
LOC: S4SX 03-03 07:38 → S4NX 03-03 09:38
PROVIDERS: Admitting Provider Advanced Practice Midwife; Visit Provider Obstetrics & Gynecology
DX: O36.63X0 Maternal care for excessive fetal growth, third trimester, not applicable or unspecified (principal); Z3A.40 40 weeks gestation of pregnancy; O48.0 Post-term pregnancy; Z37.0 Single live birth; R03.0 Elevated blood-pressure reading, without diagnosis of hypertension; O26.893 Other specified pregnancy related conditions, third trimester
CPT/HCPCS: 36415; 76805; 80053; 80307; 81001; 82570; 83615; 84156; 84550; 85025; 85384; 85610; 85730; 86780; 86850; 86900; 86901; J2590; J2795; J3490; J7120; S0191; A9270

== ENCOUNTER 2025-03-08 11:19 | Outpatient (AMB) | payer MEDICAID, SELFPAY ==
--- NOTE | 2025-03-08 11:28 | AMB.OBVISIT ---
Vital Signs 03/08/25 11:42 Weight 80.739 kg Weight Measurement Method Standing Scale BP 166/105 H Blood Pressure Source Automatic Cuff Blood Pressure Location Left Upper Arm Position Sitting Respiration 16 Pulse 85 Pulse Source Monitor Temp 98.2 F Temp Source Oral Pulse Oximetry (%) 99 Oxygen Delivery Method Room Air Allergies/Home Meds Allergies & Medications Allergies No Known Allergies Allergy (Verified 03/08/25 11:28) Medication Reconciliation vitamins with calcium no.72-iron 27 mg-folic acid 1 mg tablet ( Vitamins Plus Low Iron) 1 tab PO QDAY 90 days #90 tabs 09/23/24 [Rx Confirmed 03/08/25] ferrous sulfate 325 mg (65 mg iron) tablet 325 mg PO BID 90 days #180 tabs 10/06/24 [Rx Confirmed 03/08/25] labetalol 200 mg tablet 200 mg PO BID #30 tabs 03/04/25 [Rx Confirmed 03/08/25] Intake Visit Data Collection New Patient or Established: Established Patient (seen at [facility] within 3 years) Reason for Visit:: OBC Seen by Clinical Staff ONLY (RN/MA): No Foundry Metallurgist Required: No Do You Feel Safe at Home: Yes Authorities Contacted: N/A PCP or OBGYN visit in last 3 months: Yes Date of Last PCP or OBGYN visit: 03/04/25 Hx Now: Yes Are you currently on any form of Control: No Pain Present Currently: No Pain Scale Used: Jacob-Iyer/Numerical Pain scale:: 0 Smoking Status Smoking Status: Never smoker Questionnaires Covid-19 Vaccine Questionnaire Has patient been vacinated for Covid-19 Have you been vacinated for Covid-19: Yes PHQ-9 PHQ-2 Over the last 2 weeks, how often have you been bothered by any of the following problems? 1. Little interest or pleasure in doing things: not at all PHQ-9 8. Moving or speaking so slowly that other people could have noticed? - Or the opposite - being so fidgety or restless that you have been moving around a lot more than usual: not at all Source: Developed by Drs. Kevin Holliday, Tami Pang, Sathya Lerner and colleagues, with an educational robby from [employer]. Social History Living Situation History Lives With: Children Housing: House Tobacco History Smoking Status: Never smoker Second Hand Smoke Exposure: No Alcohol History Alcohol Intake: Never Domestic Abuse History Do You Feel Safe at Home: Yes EQUIPMENT LEAD: Past Medical History Past Medical History: No Hx Neurological Disorders, No Hx Breast Cancer, No Hx Cardiac Disorders, No Hx Cancer, No Hx Blood Disorders, Yes Hx Anemia, No Hx Gastrointestinal Disorders, No Hx Renal Disease, No Hx Diabetes Mellitus Type 1, No Hx Diabetes Mellitus Type 2 and No Hx Hysterectomy Care OB Visit Log OB Flowsheet Initial Weight: Not Recorded Date <del>?</del> EGA Weight BP Alb Glu CTX Pres Fundal ht FHR Mov Dilation Station Effacement Hx Notes Visit Note 09/08/24 <del>?</del> 14w 6d 83.461 kg 113/74 145 OBI: Lucia Babcock is a 38-year-old who presents for her initial visit at 14 weeks and 6 days gestation based on her last menstrual period of May 26, 2024. Regarding her obstetric history, the patient has had two full-term vaginal deliveries, one second-trimester loss at 15 weeks in July 2021, and two miscarriages. 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 - Order initial labs including genetic testing for aneuploidy screening - Refer for anatomy survey ultrasound at 20 weeks gestation at [facility] - Continue care with regular follow-up visits - Discontinue current vitamin prescription - Recommend trial of vula-smw-yhnhwgq gummy vitamins - Educate patient that temporary discontinuation of vitamins is acceptable 10/06/24 <del>?</del> 18w 6d 82.554 kg 109/71 Lucia Babcock, at 17w1d, presents for routine care. She reports difficulty tolerating vitamins due to digestive issues and has intermittently held them. No other complaints. Denies CTX/LOF/VB, reports good FM. Labs show mild anemia (Hgb 10.3), 1+ ketonuria, and reactive RPR with 1:1 titer (TPA negative). All other labs, including genetic screen, were normal. Male fetus confirmed. Plan: Switch to chewable or gummy vitamin with iron Encourage increased hydration and regular meals to reduce ketonuria Monitor RPR titer; no treatment needed if TPA remains negative Continue routine care Follow up in 4 weeks 11/08/24 <del>?</del> 23w 4d 84.368 kg 108/72 absent unknown 22 145 active Doing well. taking PNV and iron. fetus active. MFM scan pending. no PTL complaints discuss PTL sign. increase fluid, discuss ptl precaution, 3rd tri labs ordered, MFM pending, continue PNV and iron and iron foods. RTC 3 week 12/01/24 <del>?</del> 26w 6d 85.786 kg 108/72 absent unknown 25 145 active Doing well. Patient takes iron and vitamins. Third trimester lab was done. Labs were normal and 1 hour GTT was 121. Denies contractions. Denies leaking. Denies bleeding Maternal- medicine appointment is pending. Discussed labor precautions. Increase fluids. Continue iron and vitamins. 12/29/24 <del>?</del> 30w 6d 85.389 kg absent cephalic 28 125 active Doing well. Taking iron twice a day. Tries to eat lots of iron rich foods. Reports good movement. Denies labor complaints like bleeding, leaking, contractions. Declined Tdap today Offered Tdap. Patient declined. Discussed labor precautions. Continue to take iron twice a day. Increase fluids. Increase activity. Return in 3 weeks for OB check 01/26/25 <del>?</del> 34w 6d 87.317 kg 121/80 occasional cephalic 36 135 active Denies leaking, denies bleeding, occasional contractions. Reports good movement. No OB complaints Discussed states with patient. GBS today. Discussed labor precautions and kick count. Increase fluids. Continue prenatals. Return in a week OB check 02/07/25 <del>?</del> 36w 4d 87.317 kg 121/78 occasional cephalic 37 135 active Reports good movement. Denies leaking, denies bleeding, occasional contraction and pressure. Denies other OB complaints Discussed GBS results is negative with patient. Discussed labor precautions and kick count twice a day. Increase fluids. Continue prenatals. Return in a week OB check 02/16/25 <del>?</del> 37w 6d 75.07 kg 131/72 occasional cephalic 37 135 active Good movement. Occasional contraction and pressure. Denies leaking or bleeding. No OB complaints consent for BTL. Discussed dates with medical OB team. Final ELOINA March 03, 2025. Discussed labor precautions and kick count twice a day. Discussed danger signs symptoms and ER precautions. consent for BTL. Discussed dates with medical OB team. Final ELOINA March 03, 2025. Discussed labor precautions and kick count twice a day. Discussed danger signs symptoms and ER precautions. IOL 03/03/25 02/24/25 <del>?</del> 39w 0d 88.11 kg 138/88 occasional cephalic 38 135 active 2.5 -3 50 2+ protien, denies PIH complaints, Patient sent to labor and delivery for PIH eval. I discussed danger signs symptoms and ER precautions. Kick count twice a day. Increase fluids. Will schedule for induction March 03. 03/01/25 <del>?</del> 39w 5d 87.572 kg 137/87 occasional cephalic 39 135 active 3 -3 50 SVE: soft,3/mid, increased mucus discharge. Reports good movement. Fetus is active. Denies any PIH complaints. Occasional contraction. No leaking and no bleeding. Patient scheduled for induction March 03. Reviewed labor precautions and PIH precautions patient. Discussed kick count. And return in a week if undelivered for OB check ELOINA Calculator Estimated Delivery Date Method Current WG Current Estimate 03/03/25 LMP (Uncertain) 40w 5d Other Estimates 03/10/25 Ultrasound #1 39w 5d 02/22/25 Ultrasound #2 42w 0d 03/03/25 Manual 40w 5d efw: 53%,per MFM. FINAL ELOINA: 03/03/25 Notes Visit Date: 02/16/25 Last Updated by: Melanie Arroyo CNM 02/16/25: Discussed dating with Dr Louise/Azam: * final ELOINA: 03/03/25 Visit Date: 02/07/25 Last Updated by: Melanie Arroyo CNM 02/07: GBS- final ELOINA: Visit Date: 01/26/25 Last Updated by: Melanie Arroyo CNM [facility] sono 01/18/23: IUP35 week. ELOINA based on this sono: +3wk, change ELOINA to 02/22/25 Visit Date: 12/29/24 Last Updated by: Melanie Arroyo CNM 39 yo . LMP 05/27/24. EDC 03/03/25. 1st sono: 09/08/24: 13w1. EDC: 03/15/25. O+,abs-,hbsag-,hiv-,HC-, GC/CT-, RPR:1:1, Reactive, TPA-, rub imm, Visit Date: 12/01/24 Last Updated by: Melanie Arroyo CNM 11/29 3rd tri lab: A1c: 4.9, 1 hr gtt: 121. RPR:1:1/TPA- Visit Date: 11/08/24 Last Updated by: Melanie Arroyo CNM 38 yo . poor dates. O+,abs-,rpr;;reactive, 1:1, TPA-, gc/ct-, hbsag-, hiv-,HC- NIPT-/Boy, SMA and CF- EDC 03/15/25, based on 13 week sono
[2025-03-08 11:42] VITALS: BP 166/105; PULSE 85; RESP 16; TEMP 36.8; O2SAT 99
--- NOTE | 2025-03-08 11:49 | AMBOBPPN_ITS ---
Vital Signs 03/08/25 11:42 03/08/25 11:51 Weight 80.739 kg Weight Measurement Method Standing Scale BP 166/105 H 166/105 H Blood Pressure Source Automatic Cuff Blood Pressure Location Left Upper Arm Position Sitting Respiration 16 16 Pulse 85 85 Pulse Source Monitor Temp 98.2 F 98.2 F Temp Source Oral Pulse Oximetry (%) 99 99 Oxygen Delivery Method Room Air Allergies/Home Meds Allergies & Medications Allergies No Known Allergies Allergy (Verified 03/08/25 11:28) Medication Reconciliation vitamins with calcium no.72-iron 27 mg-folic acid 1 mg tablet ( Vitamins Plus Low Iron) 1 tab PO QDAY 90 days #90 tabs 09/23/24 [Rx Confirmed 03/08/25] ferrous sulfate 325 mg (65 mg iron) tablet 325 mg PO BID 90 days #180 tabs 10/06/24 [Rx Confirmed 03/08/25] labetalol 200 mg tablet 200 mg PO BID #30 tabs 03/04/25 [Rx Confirmed 03/08/25] labetalol 400 mg tablet 400 mg PO BID #60 tabs 03/08/25 [Rx] Intake Visit Data Collection New Patient or Established: Established Patient (seen at [facility] within 3 years) Reason for Visit:: OBC Seen by Clinical Staff ONLY (RN/MA): No Dampproofer Required: No Do You Feel Safe at Home: Yes Authorities Contacted: N/A PCP or OBGYN visit in last 3 months: Yes Date of Last PCP or OBGYN visit: 03/04/25 Hx Now: Yes Are you currently on any form of Control: No Pain Present Currently: No Pain Scale Used: Jacob-Iyer/Numerical Pain scale:: 0 Smoking Status Smoking Status: Never smoker CARTON LINER: Past Medical History Past Medical History: No Hx Neurological Disorders, No Hx Breast Cancer, No Hx Cardiac Disorders, No Hx Cancer, No Hx Blood Disorders, Yes Hx Anemia, No Hx Gastrointestinal Disorders, No Hx Renal Disease, No Hx Diabetes Mellitus Type 1, No Hx Diabetes Mellitus Type 2 and No Hx Hysterectomy Questionnaires Covid-19 Vaccine Questionnaire Has patient been vacinated for Covid-19 Have you been vacinated for Covid-19: Yes Social History Living Situation History Lives With: Children Housing: House Tobacco History Smoking Status: Never smoker Second Hand Smoke Exposure: No Alcohol History Alcohol Intake: Never Domestic Abuse History Do You Feel Safe at Home: Yes EPDS - PP Depression Screening [place] Pospartum Depression Screen I have been able to laugh and see the funny side of things: (0) As much as I always could I have looked forward with enjoyment to things: (0) As much as I ever did I have blamed myself unnecessarily when things went wrong: (0) No, never I have been anxious or worried for no good reason: (0) No, not at all I have felt scared or panicky for no very good reason: (0) No, not at all Things have been getting on top of me: (0) No, I have been coping as well as ever I have been so unhappy that I have had difficulty sleeping: (0) No, not at all I have felt sad or miserable: (0) No, not at all I have been so unhappy that I have been crying: (0) No, never The thought of harming myself has occurred to me: (0) Never Total Score: EPDS Score: Referral is indicated for score of 9 or more, suicidal, or if provider believes patient is depressed regardless of score.: 0 EPDS completed yes Care OB Visit Log OB Flowsheet Initial Weight: Not Recorded Date -?-?-?-?-?-?-?-?-?-?-?-?- EGA Weight BP Alb Glu CTX Pres Fundal ht FHR Mov Dilation Station Effacement Hx Notes Visit Note 09/08/24 -?-?-?-?-?-?-?-?-?-?-?-?- 14w 6d 83.461 kg 113/74 145 OBI: Lucia Babcock is a 38-year-old who presents for her initial visit at 14 weeks and 6 days gestation based on her last menstrual period of May 26, 2024. Regarding her obstetric history, the pat ient has had two full-term vaginal deliveries, one second-trimester loss at 15 weeks in July 2021, and two miscarriages. 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 - Order initial labs including genetic testing for aneuploidy screening - Refer for anatomy survey ultrasound at 20 weeks gestation at [facility] - Continue care with regular fo llow-up visits - Discontinue current vitamin p rescription - Recommend trial of iler-mua-uzagyzv pr enatal gummy vitamins - Educate patient that temporary discont inuation of vitamins is acceptable 10/06/24 -?-?-?-?-?-?-?-?-?-?-?-?- 18w 6d 82.554 kg 109/71 Lucia Babcock, at 17w1d, presents for routine care. She reports difficulty tolerating vitamins due to digestive issues and has intermittently held them. No other complaints. Denies CTX/LOF/VB, reports good FM. Labs show mild anemia (Hgb 10.3), 1+ ketonuria, and reactive RPR with 1:1 titer (TPA negative). All other labs, including genetic screen, were normal. Male fetus confirmed. Plan: Switch to chewable or gummy vit pedro with iron Encourage increased hydration and regula r meals to reduce ketonuria Monitor RPR titer; no treatment needed i f TPA remains negative Continue routine care Follow up in 4 weeks 11/08/24 -?-?-?-?-?-?-?-?-?-?--?-?- 23w 4d 84.368 kg 108/72 absent unknown 22 145 active Doing well. taking PNV and iron. fetus active. MFM scan pending. no PTL complaints discuss PTL sign. increase fluid, discuss ptl precaution, 3rd tri labs ordered, MFM pending, continue PNV and iron and iron foods. RTC 3 week 12/01/24 -?-?-?-?-?-?-?-?-?-?-?-?- 26w 6d 85.786 kg 108/72 absent unknown 25 145 active Doing well. Patient takes iron and vitamins. Third trimester lab was done. Labs were normal and 1 hour GTT was 121. Denies contractions. Denies leaking. Denies bleeding Maternal- medicine appointment is pending. Discussed labor precautions. Increase fluids. Continue iron and vitamins. 12/29/24 -?-?-?-?-?-?-?-?-?-?-?-?- 30w 6d 85.389 kg absent cephalic 28 125 ac tive Doing well. Taking iron twice a day. Tries to eat lots of iron rich foods. Reports good movement. Denies labor complaints like bleeding, leaking, contractions. Declined Tdap today Offered Td ap. Patient declined. Discussed labor precautions. Continue to take iron twice a day. Increase fluids. Increase activity. Return in 3 weeks for OB check 01/26/25 -?-?-?-?-?-?-?-?-?-?-?-?- 34w 6d 87.317 kg 121/80 occasional cephalic 36 135 active Denies leaking, denies bleeding, occasional contractions. Reports good movement. No OB complaints Discussed states with patient. GBS today. Discussed labor precautions and kick count. Increase fluids. Continue prenatals. Return in a week OB check 02/07/25 -?-?-?-?-?-?-?-?-?-?-?-?- 36w 4d 87.317 kg 121/78 occasional cephalic 37 135 active Reports good movement. Denies leaking, denies bleeding, occasional contraction and pressure. Denies other OB complaints Discussed GBS results is negative with patient. Discussed labor precautions and kick count twice a day. Increase fluids. Continue prenatals. Return in a week OB check 02/16/25 -?-?-?-?-?-?-?-?-?-?-?-?- 37w 6d 75.07 kg 131/72 occasional cephalic 37 135 active Good movement. Occasional contraction and pressure. Denies leaking or bleeding. No OB complaints consent for BTL. Discussed dates with medical OB team. Final ELOINA March 03, 2025. Discussed labor precautions and kick count twice a day. Discussed danger signs symptoms and ER precautions. consent for BTL. Discussed dates with medical OB team. Final ELOINA March 03, 2025. Discussed labor precautions and kick count twice a day. Discussed danger signs symptoms and ER precautions. IOL 03/03/25 02/24/25 -?-?-?-?-?-?-?-?-?-?-?-?- 39w 0d 88.11 kg 138/88 occasional cephalic 38 135 active 2.5 -3 50 2+ protien, denies PIH complaints, Patient sent to labor and delivery for PIH eval. I discussed danger signs symptoms and ER precautions. Kick count twice a day. Increase fluids. Will schedule for induction March 03. 03/01/25 -?-?-?-?-?-?-?-?-?-?-?-?- 39w 5d 87.572 kg 137/87 occasional cephalic 39 135 active 3 -3 50 SVE: soft,3/mid, increased mucus discharge. Reports good movement. Fetus is active. Denies any PIH complaints. Occasional contraction. No leaking and no bleeding. Patient schedule d for induction March 03. Reviewed labor precautions and PIH precautions patient. Discussed kick count. And return in a week if undelivered for OB check ELOINA Calculator Estimated Delivery Date Method Current WG Current Estimate 03/03/25 LMP (Uncertain) 40w 5d Other Estimates 03/10/25 Ultrasound #1 39w 5d 02/22/25 Ultrasound #2 42w 0d 03/03/25 Manual 40w 5d efw: 53%,per MF M. FINAL ELOINA: 03/03/25 Notes Visit Date: 02/16/25 Last Updated by: Melanie Bradshaw CNM 02/16/25: Discussed dating with Dr Louise/Azam: * final ELOINA: 03/03/25 Visit Date: 02/07/25 Last Updated by: Melanie Bradshaw CNM 02/07: GBS- final ELOINA: Visit Date: 01/26/25 Last Updated by: Melanie Bradshaw CNM [facility] sono 01/18/23: IUP35 week. ELOINA based on this sono: +3wk, change ELOINA to 02/22/25 Visit Date: 12/29/24 Last Updated by: Melanie Bradshaw CNM 39 yo . LMP 05/27/24. EDC 03/03/25. 1st sono: 09/08/24: 13w1. EDC: 03/15/25. O+,abs-,hbsag-,hiv-,HC-, GC/CT-, RPR:1:1, Reactive, TPA-, rub imm, Visit Date: 12/01/24 Last Updated by: Melanie Bradshaw CNM 11/29 3rd tri lab: A1c: 4.9, 1 hr gtt: 121. RPR:1:1/TPA- Visit Date: 11/08/24 Last Updated by: Melanie Bradshaw CNM 38 yo . poor dates. O+,abs-,rpr;;reactive, 1:1, TPA-, gc/ct-, hbsag- , hiv-,HC- NIPT-/Boy, SMA and CF- EDC 03/15/25, based on 13 week sono HPI Interval History: 39-year-old 5 para 3 for blood pressure check. Patient had a vaginal March 03, 2025. She was induced at 40 weeks for hypertension and history of a large baby. Patient had a small first-degree vaginal tear. The baby weighed 8 pounds 2. Patient is bottlefeeding. Patient had an epidural for for pain relief. Patient labor by herself. Her partner is incarcerated. She has limited support from her family. Patient states that she is not depressed but she has increased stressors and limited support. Patient feels that she has to always do things herself. She has not been wanting to take off work. Today her initial blood pressure 166 105 and the repeat was 160/117. Patient denies headache, blurred vision. And epigastric pain. She has no complaints of any cramping or perineal pain. She is also like to start her disability. The first day that she took off is March 02, 2025 Was or delivery considered high risk: Yes Delivery type: vaginal Was labor induced: yes and no Gestational age at delivery (weeks): 40 Delivery date: 03/03/25 Delivering provider: genesis bradshaw Delivery complications: No Is patient infant: No Is patient sexually active: No Contraception planned: unsure Review of Systems Review of Systems ROS limited to current CARTON LINER complaints: Yes Exam Narrative Physical exam: Normal heart rate and rhythm. Lungs clear no wheezes. Abdomen is soft nontender. Uterus well involuted. Perineum is intact no lacerations. No swelling. Small lochia. Negative Homans' sign. 2+ DTRs. No edema no swelling. Breasts are soft General Limitations: no limitations General Appearance: alert, in no apparent distress, comfortable, cooperative, healthy appearing, well developed and well groomed ENT ENT exam: Present normal exam, normal oropharynx and mucous membranes moist Chest Chest inspection: Present normal inspection and symmetric chest wall rise Resp Respiratory exam: Present normal lung sounds bilaterally Card Cardiovascular exam: Present regular rate, normal rhythm and normal heart sounds Abdominal Abdominal exam: Present soft and normal bowel sounds Extremities Extremities exam: Present normal inspection and full ROM Psych Psychiatric exam: Present normal affect and normal mood Office Procedures OBC Clinic LOC & Office Proc's Nursing/Assessment Patient Status: Established Patient OB Clinic Nursing Assessment: Medication Reconciliation, Update PMH in EMR and Vital Signs OB Clinic Coordination of Care: Consent,records obtained, informed consent, Education Simp Pt/Fam, Lab and Imaging orders and Staff clarify orders Special Needs: Heart tones Established Patient Charge Established Patient Point Assignment: 105 Established Patient Point Charge: EP Level 3 (80-115) Assessment & Plan Diagnosis / Problem List (1) Encounter for visit: Status: Acute (2) Unspecified maternal hypertension, complicating the puerperium: Status: Acute Plan Consult with OB regarding elevated blood pressures. Patient will be started on labetalol 400 twice daily. I discussed and reviewed signs and symptoms of preeclampsia with patient. And I discussed ER precautions with parameters. The patient and I also discussed the need for her to ask her family for help, maybe stay at her mother's house. Patient is going to apply for her disability starting March 02. And I encouraged patient to take her 6 weeks off and extended time if she can. Patient was unsure about the control she wanted because her partner is in group home. Patient will return in 48 hours with OB to evaluate blood pressure and effectiveness of labetalol Care Reviewed delivery summary and any complications: Yes Uterus involuted to: 3 below umb Perineal / incision healing noted: Yes Screened for depression: Yes Depression counseling provided: No Discussed family planning & contraception: Yes Contraception planned: unsure Counseling on safe resumption of sexual activity: Yes Counseling on gradual excercise: Yes Discussed and concerns (describe), provided support: No Referred to shipping and receiving specialist: No Counseled on good nutrition, hydration, and self care: Yes Reviewed vaccine status: No Chronic & current problems reconciled on problem list: Yes Additional follow up plans: Increase labetalol to 400 mg p.o. twice daily Follow up: routine/prn (increase rest) Additional counseling & anticipatory guidance provided: Follow-up with OB in 2 days to for BP check and to monitor effectiveness of medication. Reinforced ER precautions and danger signs symptoms with parameters.
[2025-03-08 11:51] VITALS: BP 166/105; PULSE 85; RESP 16; TEMP 36.8; O2SAT 99
== END 2025-03-08 12:12 | disposition home or self-care (01) ==
LOC: HODSOBC 11:19
PROVIDERS: Supervising Provider Advanced Practice Midwife; Visit Provider Advanced Practice Midwife
DX: Z39.2 Encounter for routine postpartum follow-up (principal); O16.5 Unspecified maternal hypertension, complicating the puerperium; Z79.899 Other long term (current) drug therapy
CPT/HCPCS: 99213; G0463

== ENCOUNTER 2025-03-10 13:06 | Outpatient (AMB) | payer MEDICAID, SELFPAY ==
--- NOTE | 2025-03-10 13:07 | AMB.OBPP ---
Vital Signs 03/10/25 13:10 Height 1.7 m Height Method Stated Weight 80.059 kg Weight Measurement Method Standing Scale BMI 27.6 BP 139/83 H Blood Pressure Source Automatic Cuff Blood Pressure Location Left Upper Arm Position Sitting Respiration 17 Pulse 62 Pulse Source Monitor Temp 97.7 F Temp Source Temporal Artery Scan Pulse Oximetry (%) 97 Oxygen Delivery Method Room Air Allergies/Home Meds Allergies & Medications Allergies No Known Allergies Allergy (Verified 03/10/25 13:16) Medication Reconciliation vitamins with calcium no.72-iron 27 mg-folic acid 1 mg tablet ( Vitamins Plus Low Iron) 1 tab PO QDAY 90 days #90 tabs 09/23/24 [Rx Confirmed 03/10/25] ferrous sulfate 325 mg (65 mg iron) tablet 325 mg PO BID 90 days #180 tabs 10/06/24 [Rx Confirmed 03/10/25] labetalol 200 mg tablet 200 mg PO BID #30 tabs 03/04/25 [Rx Confirmed 03/10/25] labetalol 400 mg tablet 400 mg PO BID #60 tabs 03/08/25 [Rx Confirmed 03/10/25] Intake Visit Data Collection New Patient or Established: Established Patient (seen at [facility] within 3 years) Reason for Visit:: PP/BPC Seen by Clinical Staff ONLY (RN/MA): No Boat Hand Required: No Do You Feel Safe at Home: Yes Authorities Contacted: N/A PCP or OBGYN visit in last 3 months: Yes Date of Last PCP or OBGYN visit: 03/08/25 Hx Now: No Are you currently on any form of Control: No Pain Present Currently: No Pain Scale Used: Jacob-Iyer/Numerical Pain scale:: 0 Smoking Status Smoking Status: Never smoker ON SITE NURSE: Past Medical History Past Medical History: No Hx Neurological Disorders, No Hx Breast Cancer, No Hx Cardiac Disorders, No Hx Cancer, No Hx Blood Disorders, Yes Hx Anemia, No Hx Gastrointestinal Disorders, No Hx Renal Disease, No Hx Diabetes Mellitus Type 1, No Hx Diabetes Mellitus Type 2 and No Hx Hysterectomy Questionnaires Covid-19 Vaccine Questionnaire Has patient been vacinated for Covid-19 Have you been vacinated for Covid-19: No Social History Living Situation History Marital Status: Lives With: Children Housing: House Tobacco History Smoking Status: Never smoker Second Hand Smoke Exposure: No Alcohol History Alcohol Intake: Never Domestic Abuse History Do You Feel Safe at Home: Yes EPDS - PP Depression Screening [place] Pospartum Depression Screen I have been able to laugh and see the funny side of things: (0) As much as I always could I have looked forward with enjoyment to things: (0) As much as I ever did I have blamed myself unnecessarily when things went wrong: (0) No, never I have been anxious or worried for no good reason: (0) No, not at all I have felt scared or panicky for no very good reason: (0) No, not at all Things have been getting on top of me: (0) No, I have been coping as well as ever I have been so unhappy that I have had difficulty sleeping: (0) No, not at all I have felt sad or miserable: (0) No, not at all I have been so unhappy that I have been crying: (0) No, never The thought of harming myself has occurred to me: (0) Never EPDS completed yes HPI Interval History: Lucia Babcock presents for blood pressure check following vaginal delivery on March 03, 2025. She was started on labetalol 400 mg twice daily 2 days ago. Her blood pressure prior to increasing the labetalol was 166/105 mmHg, and now it is 139/83 mmHg. She is a 39-year-old female with an obstetric history of G1 T1 L1. She delivered via spontaneous vaginal delivery on March 03, 2025. The patient has been taking labetalol 400 mg twice daily, started 2 days ago. ROS: Not documented. Exam General General Appearance: alert, in no apparent distress and healthy appearing Head Head exam: atraumatic Neck Neck exam: Present normal inspection and trachea midline Chest Chest inspection: Present normal inspection and symmetric chest wall rise External exam: Present normal external exam; Absent tenderness Neuro Neurological exam: Present oriented X3 Psych Psychiatric exam: Present normal affect and normal mood Office Procedures OBC Clinic LOC & Office Proc's Nursing/Assessment Patient Status: Established Patient OB Clinic Nursing Assessment: Medication Reconciliation, Update PMH in EMR and Vital Signs OB Clinic Coordination of Care: Complex Care and Chronic Disease 1-5, Education Complex Pt/Fam, Consent,records obtained, informed consent, Results/Orders obtained and Staff clarify orders Established Patient Charge Established Patient Point Assignment: 95 Established Patient Point Charge: EP Level 3 (80-115) Antepartum Initial or Follow-up Antepartum Follow up Visit: Yes Assessment & Plan Diagnosis / Problem List (1) Unspecified maternal hypertension, complicating the puerperium: Status: Acute Plan Hypertension: - One week following vaginal delivery on 03/03/2025. - Blood pressure improved from 166/105 mmHg to 139/83 mmHg on current therapy. - Partial response to antihypertensive treatment though still above normal range. Plan: - Continue labetalol 400 mg BID given improvement in blood pressure.
[2025-03-10 13:10] VITALS: BP 139/83; PULSE 62; RESP 17; TEMP 36.5; O2SAT 97; BMI 27.6
== END 2025-03-10 13:53 | disposition home or self-care (01) ==
LOC: HODSOBC 13:06
PROVIDERS: Supervising Provider Obstetrics & Gynecology; Visit Provider Obstetrics & Gynecology
DX: O16.5 Unspecified maternal hypertension, complicating the puerperium (principal)
CPT/HCPCS: 99213; Z1034; G0463

== ENCOUNTER 2025-04-14 11:11 | Outpatient (AMB) | payer MEDICAID, SELFPAY ==
[2025-04-14 11:21] VITALS: BP 136/84; PULSE 63; RESP 14; TEMP 36.3; O2SAT 98; BMI 27.2
--- NOTE | 2025-04-14 11:21 | AMBOBPPN_ITS ---
Vital Signs 04/14/25 11:21 Height 1.7 m Height Method Stated Weight 78.642 kg Weight Measurement Method Standing Scale BMI 27.2 BP 136/84 H Blood Pressure Source Automatic Cuff Blood Pressure Location Left Upper Arm Position Sitting Respiration 14 Pulse 63 Pulse Source Monitor Temp 97.3 F Temp Source Oral Pulse Oximetry (%) 98 Oxygen Delivery Method Room Air Allergies/Home Meds Allergies & Medications Allergies No Known Allergies Allergy (Verified 04/14/25 11:22) Medication Reconciliation vitamins with calcium no.72-iron 27 mg-folic acid 1 mg tablet ( Vitamins Plus Low Iron) 1 tab PO QDAY 90 days #90 tabs 09/23/24 [Rx Confirmed 04/14/25] ferrous sulfate 325 mg (65 mg iron) tablet 325 mg PO BID 90 days #180 tabs 10/06/24 [Rx Confirmed 04/14/25] labetalol 200 mg tablet 200 mg PO BID #30 tabs 03/04/25 [Rx Confirmed 04/14/25] labetalol 400 mg tablet 400 mg PO BID #60 tabs 03/08/25 [Rx Confirmed 04/14/25] sertraline 25 mg tablet (Zoloft) 25 mg PO QDAY depression #60 tabs 04/14/25 [Rx] Intake Visit Data Collection New Patient or Established: Established Patient (seen at [facility] within 3 years) Reason for Visit:: / BLOOD PRESSURE CHECK Seen by Clinical Staff ONLY (RN/MA): No County Director Welfare Required: No Do You Feel Safe at Home: Yes Authorities Contacted: N/A PCP or OBGYN visit in last 3 months: Yes Hx Now: No Are you currently on any form of Control: No Pain Present Currently: No Pain Scale Used: Jacob-Iyer/Numerical Pain scale:: 0 Smoking Status Smoking Status: Never smoker Immunizations Flu Vaccine in the Last 12 Months: No Flu Vaccine Exclusion Criteria: Refused by Patient SEAT MENDER: Past Medical History Past Medical History: No Hx Neurological Disorders, No Hx Breast Cancer, No Hx Cardiac Disorders, No Hx Cancer, No Hx Blood Disorders, Yes Hx Anemia, No Hx Gastrointestinal Disorders, No Hx Renal Disease, No Hx Diabetes Mellitus Type 1, No Hx Diabetes Mellitus Type 2 and No Hx Hysterectomy Questionnaires Covid-19 Vaccine Questionnaire Has patient been vacinated for Covid-19 Have you been vacinated for Covid-19: Yes Social History Living Situation History Lives With: Children Housing: House Tobacco History Smoking Status: Never smoker Second Hand Smoke Exposure: No Alcohol History Alcohol Intake: Never Domestic Abuse History Do You Feel Safe at Home: Yes EPDS - PP Depression Screening [place] Pospartum Depression Screen I have been able to laugh and see the funny side of things: (0) As much as I always could I have looked forward with enjoyment to things: (0) As much as I ever did I have blamed myself unnecessarily when things went wrong: (0) No, never I have been anxious or worried for no good reason: (0) No, not at all I have felt scared or panicky for no very good reason: (0) No, not at all Things have been getting on top of me: (0) No, I have been coping as well as ever I have been so unhappy that I have had difficulty sleeping: (0) No, not at all I have felt sad or miserable: (0) No, not at all I have been so unhappy that I have been crying: (0) No, never The thought of harming myself has occurred to me: (0) Never EPDS completed yes HPI Interval History: 39-year-old 5 para 3 for 6-week . Patient had a vaginal March 03, 2025. Patient was induced for both macrosomia and hypertension. She had a readmission to the ER for elevated blood pressure and then was seen in the office with blood pressures 160s over 105. Patient has since been taking labetalol 400 twice daily and her blood pressures are stable at 130s over 84. And patient also checks her blood pressures at home and reports the same. She does say that when she gets anxious or upset it goes up a little bit. Patient had a little boy and that little boy weighed 8 pounds 2 and she is bottlefeeding. She does not need control right now partner is incarcerated. Patient has limited to no help at home so she is very tearful about that. Denies headache, blurred vision, epigastric pain. Was or delivery considered high risk: Yes Delivery type: vaginal Was labor induced: yes Gestational age at delivery (weeks): 38 Delivery date: 03/03/25 Delivering provider: genesis bradshaw Delivery complications: Yes Delivery complications comment: elevated BP Is patient infant: No Is patient sexually active: No Contraception planned: none Review of Systems Review of Systems ROS limited to current SEAT MENDER complaints: Yes Exam Narrative Physical exam: Normal heart rate and rhythm. Lungs clear no wheezes. Abdomen is soft nontender. Uterus well involuted. Perineum is intact no lacerations. No swelling. Small lochia. Negative Homans' sign. 2+ DTRs. No edema no swelling. Breasts are soft General Limitations: no limitations General Appearance: alert, in no apparent distress, comfortable, cooperative, healthy appearing, well developed and well groomed Head Head exam: atraumatic, normocephalic and normal inspection ENT ENT exam: Present normal exam, normal oropharynx and mucous membranes moist Neck Neck exam: Present normal inspection, full ROM and trachea midline Chest Chest inspection: Present normal inspection and symmetric chest wall rise Resp Respiratory exam: Present normal lung sounds bilaterally Card Cardiovascular exam: Present regular rate, normal rhythm and normal heart sounds Abdominal Abdominal exam: Present soft and normal bowel sounds Extremities Extremities exam: Present normal inspection and full ROM Psych Psychiatric exam: Present normal affect and normal mood Office Procedures OBC Clinic LOC & Office Proc's Nursing/Assessment Patient Status: Established Patient OB Clinic Nursing Assessment: Medication Reconciliation, Update PMH in EMR and Vital Signs OB Clinic Coordination of Care: Complex Care and Chronic Disease 1-5, Consent,records obtained, informed consent, Education Simp Pt/Fam, 1 Ins Authorization, Lab and Imaging orders, Results/Orders obtained and Staff clarify orders Established Patient Charge Established Patient Point Assignment: 120 Established Patient Point Charge: EP Level 4 (120-155) Assessment & Plan Diagnosis / Problem List (1) Unspecified maternal hypertension, complicating the puerperium: Status: Acute (2) Depression affecting , : Status: Acute (3) 6 weeks follow-up: Status: Acute Plan Referred patient to [facility]. I advised patient to schedule an appointment this week with her primary care physician for both depression and hypertension. Continue the labetalol 400 twice daily. Discussed diet and weight. Continue prenatals. Patient will follow-up in telehealth appointment in 2 weeks. I extend disability for 4 weeks to April,. offered control /patient declined until july Care Reviewed delivery summary and any complications: Yes Uterus involuted to: 3 below Perineal / incision healing noted: Yes Screened for depression: Yes Depression counseling provided: Yes Discussed family planning & contraception: Yes Contraception planned: none Counseling on safe resumption of sexual activity: Yes Counseling on gradual excercise: Yes Discussed and concerns (describe), provided support: No Referred to technical training specialist: No Counseled on good nutrition, hydration, and self care: Yes Chronic & current problems reconciled on problem list: Yes Infant care discussed; questions answered: feeding and sleep Follow up: routine/prn Additional counseling & anticipatory guidance provided: Advised patient to make an appointment this week with family practice for depression and her blood pressure. Continue labetalol 400 p.o. twice daily. Increase rest and fluids. Make an appointment via telemed for 2 weeks for follow-up
== END 2025-04-14 12:01 | disposition home or self-care (01) ==
LOC: HODSOBC 11:11
PROVIDERS: Supervising Provider Advanced Practice Midwife; Visit Provider Advanced Practice Midwife
DX: Z39.2 Encounter for routine postpartum follow-up (principal); O99.345 Other mental disorders complicating the puerperium; F53.0 Postpartum depression; O16.5 Unspecified maternal hypertension, complicating the puerperium
CPT/HCPCS: 99214; G0463

== ENCOUNTER 2025-04-28 11:45 | Outpatient (AMB) | payer MEDICAID, SELFPAY ==
--- NOTE | 2025-04-28 11:46 | AMB.OBPP ---
Allergies/Home Meds Allergies & Medications Allergies No Known Allergies Allergy (Verified 04/28/25 11:47) Medication Reconciliation vitamins with calcium no.72-iron 27 mg-folic acid 1 mg tablet ( Vitamins Plus Low Iron) 1 tab PO QDAY 90 days #90 tabs 09/23/24 [Rx Confirmed 04/28/25] ferrous sulfate 325 mg (65 mg iron) tablet 325 mg PO BID 90 days #180 tabs 10/06/24 [Rx Confirmed 04/28/25] labetalol 200 mg tablet 200 mg PO BID #30 tabs 03/04/25 [Rx Confirmed 04/28/25] labetalol 400 mg tablet 400 mg PO BID #60 tabs 03/08/25 [Rx Confirmed 04/28/25] sertraline 25 mg tablet (Zoloft) 25 mg PO QDAY depression #60 tabs 04/14/25 [Rx Confirmed 04/28/25] Intake Visit Data Collection New Patient or Established: Established Patient (seen at [facility] within 3 years) Reason for Visit:: PP Seen by Clinical Staff ONLY (RN/MA): No Rv Mechanic Required: No Do You Feel Safe at Home: Yes Authorities Contacted: N/A PCP or OBGYN visit in last 3 months: Yes Date of Last PCP or OBGYN visit: 03/10/25 Hx Now: No Are you currently on any form of Control: No Pain Present Currently: No Pain Scale Used: Jacob-Iyer/Numerical Pain scale:: 0 Smoking Status Smoking Status: Never smoker Immunizations Flu Vaccine in the Last 12 Months: No Flu Vaccine Exclusion Criteria: No Exclusion Criteria For Telemed visit only Telemed Video/Phone Visit: Yes Verbal consent obtained for Telemed visit?: Yes Verbal Consent witness name: CHRISTOPHER SMITH MA / LULY BROOKE MA LEAD MEDICAL TECHNOLOGIST: Past Medical History Past Medical History: No Hx Neurological Disorders, No Hx Breast Cancer, No Hx Cardiac Disorders, No Hx Cancer, No Hx Blood Disorders, Yes Hx Anemia, No Hx Gastrointestinal Disorders, No Hx Renal Disease, No Hx Diabetes Mellitus Type 1, No Hx Diabetes Mellitus Type 2 and No Hx Hysterectomy Questionnaires Covid-19 Vaccine Questionnaire Has patient been vacinated for Covid-19 Have you been vacinated for Covid-19: No Social History Living Situation History Lives With: Children Housing: House Tobacco History Smoking Status: Never smoker Second Hand Smoke Exposure: No Alcohol History Alcohol Intake: Never Domestic Abuse History Do You Feel Safe at Home: Yes EPDS - PP Depression Screening [place] Pospartum Depression Screen I have been able to laugh and see the funny side of things: (0) As much as I always could I have looked forward with enjoyment to things: (0) As much as I ever did I have blamed myself unnecessarily when things went wrong: (0) No, never I have been anxious or worried for no good reason: (0) No, not at all I have felt scared or panicky for no very good reason: (0) No, not at all Things have been getting on top of me: (0) No, I have been coping as well as ever I have been so unhappy that I have had difficulty sleeping: (0) No, not at all I have felt sad or miserable: (0) No, not at all I have been so unhappy that I have been crying: (0) No, never The thought of harming myself has occurred to me: (0) Never Total Score: EPDS Score: Referral is indicated for score of 9 or more, suicidal, or if provider believes patient is depressed regardless of score.: 0 EPDS completed yes HPI Interval History: 39-year-old 5 para 3 for follow-up to 6-week visit.Telemed appt. Patient had a vaginal March 03, 2025. A baby boy weighing 8 pounds 2 and she is bottlefeeding patient was started on Zoloft 25 mg a day her last visit. And she was also referred to [place] high risk. Patient reports that she saw behavioral health specialist x 2 at [facility]. Her last visit was on the third. She feels that the visits have been helpful and she is getting more organized and asking for help and getting out in public and seeing family and friends and she thinks this is helping. Her partner is still incarcerated. Patient reports she is looking forward to the holidays. And she is ready go back to work. No interval complaints of pain dizziness. Siblings are adjusting. Patient also made an appointment with family practice for her chronic hypertension. She is still taking her labetalol 400 twice daily. And she has a follow-up with family practice in 6 months. Patient still wants to wait to start control until her partner is out of correction Was or delivery considered high risk: Yes Delivery type: vaginal Was labor induced: yes Gestational age at delivery (weeks): 39 Delivery date: 03/03/25 Delivering provider: genesis bradshaw Delivery complications: Yes Delivery complications comment: elevated BP Is patient : No Is patient sexually active: No Contraception planned: none Review of Systems Review of Systems ROS limited to current LEAD MEDICAL TECHNOLOGIST complaints: Yes Exam Narrative Physical exam: Normal heart rate and rhythm. Lungs clear no wheezes. Abdomen is soft nontender. Uterus well involuted. Perineum is intact no lacerations. No swelling. Small lochia. Negative Homans' sign. 2+ DTRs. No edema no swelling. Breasts are soft Office Procedures OBC Clinic LOC & Office Proc's Nursing/Assessment Patient Status: Established Patient OB Clinic Nursing Assessment: Medication Reconciliation and Update PMH in EMR OB Clinic Coordination of Care: Consent,records obtained, informed consent, Education Simp Pt/Fam, Lab and Imaging orders, Results/Orders obtained and Staff clarify orders Established Patient Charge Established Patient Point Assignment: 65 Telehealth If patient is seen using Teleconference methods, complete New/Est section, but DO NOT saurav points only saurav the correct Telemed visit type Telemed Phone/Video with patient at home & Dr,PA,MULTI CRAFT MAINTENANCE TECHNICIAN: Yes Assessment & Plan Diagnosis / Problem List (1) Depression affecting , : Status: Acute (2) Unspecified maternal hypertension, complicating the puerperium: Status: Acute Plan Continue Zoloft 25 mg a day. And patient to continue to follow-up with counseling at [facility]. Patient will keep her appointment with family practice to monitor blood pressures and manage her labetalol. Reviewed danger signs and symptoms and ER precautions. I advised patient to continue to get out and see people in family and friends like her counselor had suggested. She will return prior to starting intercourse around July for control. And return as needed for Pap Care Reviewed delivery summary and any complications: Yes Uterus involuted to: not done Perineal / incision healing noted: No Screened for depression: Yes Depression counseling provided: Yes Discussed family planning & contraception: Yes Contraception planned: none Counseling on safe resumption of sexual activity: Yes Counseling on gradual excercise: Yes Discussed and concerns (describe), provided support: No Referred to housing development specialist: No Counseled on good nutrition, hydration, and self care: Yes Reviewed vaccine status: No Follow up: routine/prn
== END 2025-04-28 13:00 | disposition home or self-care (01) ==
LOC: HODSOBC 11:45
PROVIDERS: Supervising Provider Advanced Practice Midwife; Visit Provider Advanced Practice Midwife
DX: Z39.2 Encounter for routine postpartum follow-up (principal); O99.345 Other mental disorders complicating the puerperium; F53.0 Postpartum depression; O10.93 Unspecified pre-existing hypertension complicating the puerperium; Z79.899 Other long term (current) drug therapy
CPT/HCPCS: 99212; G0463